=== PATIENT | female | born 1990 | race American Indian/Alaskan Native ===

== ENCOUNTER 2017-04-04 22:23 | Emergency (ER) | payer OTHER ==
[~2017-04-04] VITALS: Ht 165.1 cm; Wt 88.5 kg
[~2017-04-04 22:23] MED LIST: CYCLOBENZAPRINE10 MG PO; EXPECTA PRENAT1 EACH MT
[2017-04-04] MEDS ORDERED: QUASENSE1 EACH PO (22:39)
== END 2017-04-05 00:33 | disposition home or self-care (01) ==
LOC: ED 22:23
DX: S16.1XXA Strain of muscle, fascia and tendon at neck level, initial encounter (principal); Z79.899 Other long term (current) drug therapy; V49.9XXA Car occupant (driver) (passenger) injured in unspecified traffic accident, initial encounter
CPT/HCPCS: 72125; 99284

== ENCOUNTER 2017-09-27 09:25 | Inpatient (IN) | payer OTHER ==
[~2017-09-27] VITALS: Ht 167.6 cm; Wt 95.2 kg
--- OUTSIDE RECORDS SUMMARY | ~2017-09-27 | XMS | Clinical Summary ---
Demographics + + + | Address | [address] | | | [place] [address] | + + + | Home Phone | | + + + | Preferred Language | Unknown | + + + | Marital Status | Single | + + + | Buddhist Affiliation | Unknown | + + + | Race | Unknown | + + + | Ethnic Group | Unknown | + + + Author + + + | Author | [facility] [employer] | + + + | Organization | [facility] [employer] | + + + | Address | Unknown | + + + | Phone | Unavailable | + + + Support + + + + + | Name | Relationship | Address | Phone | + + + + + | Daisy Dacosta | ECON | [address] | | | | | [place] | | | | | [address] | | + + + + + Care Team Providers + +------+ + | Care Atmospheric Technician Name | Role | Phone | + +------+ + PP | Unavailable | + +------+ + Allergies Not on File Current Medications Not on file Active Problems Not on file Social History + +-------+ +--------+------+ | Tobacco Use | Types | Packs/Day | Years | Date | | | | | Used | | + +-------+ +--------+------+ | Never Assessed | | | | | + +-------+ +--------+------+ + + + | Sex Assigned at | Date Recorded | | | | + + + | Not on file | | + + + Plan of Treatment Not on file Results Not on filefrom Last 3 Months"
--- OUTSIDE RECORDS SUMMARY | ~2017-09-27 | XMS | Clinical Summary ---
Demographics + + + | Address | [address] | | | [place] [address] | + + + | Home Phone | | + + + | Preferred Language | Unknown | + + + | Marital Status | Single | + + + | Methodist Affiliation | Unknown | + + + | Race | Unknown | + + + | Ethnic Group | Unknown | + + + Author + + + | Author | [facility] [employer] [facility] | + + + | Organization | [facility] [employer] [facility] | + + + | Address | Unknown | + + + | Phone | Unavailable | + + + Support + + + + + | Name | Relationship | Address | Phone | + + + + + | Daisy Dacosta | ECON | [address] | | | | | [place] | | | | | [address] | | + + + + + Care Team Providers + +------+ + | Care Automatic Mold Sander Name | Role | Phone | + [...]
--- OUTSIDE RECORDS SUMMARY | ~2017-09-27 | XMS | Clinical Summary ---
Demographics + + + | Address | [address] | | | [place] [address] | + + + | Home Phone | | + + + | Preferred Language | Unknown | + + + | Marital Status | Single | + + + | Hinduism Affiliation | Unknown | + + + | Race | Unknown | + + + | Ethnic Group | Unknown | + + + Author + + + | Author | [facility] [facility] | + + + | Organization | [facility] [employer] | + + + | Address | Unknown | + + + | Phone | Unavailable | + + + Support + + + + + | Name | Relationship | Address | Phone | + + + + + | Daisy Dacosta | ECON | [address] | | | | | [place] | | | | | [phone] | | + + + + + Care Team Providers + +------+ + | Care Dinkey Operator Name | Role | Phone | + [...]
[~2017-09-27 09:25] MED LIST changes: +QUASENSE1 EACH PO
--- NOTE | 2017-09-27 16:07 | NUR ---
09/27/17 1607 Chiara Wise 1547- PT ARRIVES TO PACU ON 10L VIA MASK. PT IS RESPONSIVE TO VOICE. REPORTS NO DIZZINESS, PAIN, OR NAUSEA AT THIS TIME. DRESSING TO RIGHT BREAST IS C/D/I. 1551- PT'S BP 72/54 WITH A MAP OF 58. PT LAID FLAT, LR FLUIDS WIDE OPEN. PT CONTINUES TO REPORT NO DIZZINESS. 1557- OXYGEN TITRATED TO 3L VIA NC. OXYGEN SAT MID TO HIGH 90'S ON 3L. 1559- OXYGEN TURNED TO 4L VIA NC FOR OXYGEN SAT 88% ON 3L. INSTRUCTED PT TO TAKE DEEP BREATHS AND COUGH. PT WAS ABLE TO PERFORM THIS. OXYGEN SAT MID TO HIGH 90'S AFTER THESE INTERVENTIONS.
--- NOTE | 2017-09-27 17:00 | NUR ---
DR BARRIGA NOTIFIED OF SBP 80, RECEIVED ORDER FOR BOLUS AND RIDLEY CATHETER.
--- NOTE | 2017-09-27 20:00 | NUR ---
IS AWAKE ALERT. RATES PAIN 6/10. CURRENTLY LOPRESSOR INCREASED TO 15MCG/MIN. WILL MEDICATE FOR PAIN BP IMPROVES. URINE OUT PUT IMPROVING. FAMILY IN ROOM.
--- NOTE | 2017-09-27 21:15 | NUR ---
CENTRAL LINE INSERTED PER DR BARRIGA. PT CHRISTIAN WELL, DID BECOME A LITTLE TEARFUL. REQUESTING SOMETHING FOR PAIN. ORDER FOR TORRADOL RECIEVED.
--- NOTE | 2017-09-27 23:45 | NUR ---
PT IS TIRED AND READY FOR SLEEP. DRSG TO R BREAST CHANGED DRSG IS SATURATED WITH SEROUS BROWN TINGED FLUID. DRAW SHEET CHANGED. PT DID HAVE PAIN WITH MOVMENT BUT RATED PAIN4/10 AFTERWARD. IV TYLENOL GIVEN PER SCHEDULE. PT FELL ASLEEP WITH IN 10 MIN OF DRSG CHANGE.SISTER IN ROOM WITH PT.
--- NOTE | 2017-09-28 02:16 | NUR ---
PT SLEEPING. OCC SATS DEC TO 70'S BRIEFLY THEN BACK TO UPPER 90'S. IS FLAT ON BACK. PROB SLEEP APNEA.
--- NOTE | 2017-09-28 04:21 | NUR ---
AWAKENED FOR ASSESSMENT. STATES PAIN IS "NOT MUCH". HAS BEEN ABLE TO SLEEP.DRSG INTACT. GIVEN WATER FOR DRY MOUTH.
--- NOTE | 2017-09-28 06:37 | NUR ---
TEMP GRADUALLY INC TO 98.3 AND HR HAS INC FROM 112 TO 120. PT RATES R CHEST/BREAT PAIN 06/24. IV TYLENOL GIVEN PER SCHEDULE BUT ALSO GIVEN 30MG TORRADOL IV. REPOSITIONED UP IN BED.
--- NOTE | 2017-09-28 06:43 | NUR ---
LEVOPHED TITRATED TO 10MCG/KG/MIN
--- NOTE | 2017-09-28 08:08 | EKG ---
[facility] [address] [facility] [place] [address] Signed Sinus tachycardia Minimal voltage criteria for LVH, may be normal variant Borderline ECG No previous ECGs available Confirmed by LAURA DAVIS MD ([id number]) on 09/28/2017 8:07:29 AM Electronically Signed By: LAURA DAVIS MD 09/28/17 0808 PATIENT NAME: AUSTIN BAILEY FABIAN Electrocardiogram DATE OF : [birth year] PHYSICIAN: LAURA DAVIS MD REPORT #: [id number] REPORT IS CONFIDENTIAL AND NOT TO BE RELEASED WITHOUT AUTHORIZATION
--- NOTE | 2017-09-28 09:04 | NUR ---
PT ON NOREPINEPHRINE AT 10 MCG/KG/MIN AT THIS TIME. GTT HAS NOT BEEN TITRATED
--- NOTE | 2017-09-28 10:00 | NUR ---
RIGHT BREAST DRESSING CHANGED AT THIS TIME, PT TOLERATED WELL. WOUND CLEANED WITH TOPICAL WOUND CLEANSING SPRAY. DRAINING YELLOW/SEROUS FLUID. PRESTON DRAINS INTACT, BREAST REDNESS DECREASED FROM OUTLINE. SWELLING INTO RIGHT AXILLA REGION, NONTENDER TO TOUCH. PT REPORTED NO PAIN WITH DRESSING CHANGE EXCEPT FOR TAPE REMOVAL. MUTLIPLE VERY SMALL FLUID FILLED BLISTER-LIKE LESIONS ON VARIOUS AREAS OF BREAST, NONTENDER, SOME DRAINING.
--- NOTE | 2017-09-28 10:30 | NUR ---
NOREPINEPHRINE DECREASED TO 8 MCG/KG/MIN AT THIS TIME
--- NOTE | 2017-09-28 10:45 | NUR ---
PT UP TO CHAIR, AMBULATED WELL. ONE PERSON ASSIST. STEADY GAIT
--- NOTE | 2017-09-28 15:59 | NUR ---
PT REPORTS INCREASED CHILLED FEELING, CURRENT RIDLEY TEMP 100.2 F, IV TORADOL GIVEN IV FOR PAIN AND INCREASED TEMPERATURE
--- NOTE | 2017-09-28 17:45 | NUR ---
NOREPI INCREASED TO 6 MCG/MIN. PT BREAST DRESSING CHANGED AT THIS TIME, GAUZE SATURATED. NO DRAINAGE ON SUPPORT GARMENT. PT TOLERATED DRESSING CHANGE WELL. PT WITH INCREASED SWELLING IN AXILLA REGION AND PT REPORTS INCREASED TENDERNESS.
--- NOTE | 2017-09-28 19:56 | NUR ---
STATES IS STILL WORKING AT DINNER. DENIES ANY PAIN. LEVOPHED DECREASED [id number] TO 7MCG. DRSG DRY AND INTACT.
--- NOTE | 2017-09-28 21:52 | NUR ---
WATCHING TV WITH SISTER. NO C/O.
--- NOTE | 2017-09-28 22:44 | NUR ---
ASKING FOR MORE SPRITE, GIVEN. NO C/O PAIN. DRSG TO R BREAST REMAINDS DRY AND INTACT. CATH CARE DONE. LIGHTS DOWN PER PT REQUEST.
--- NOTE | 2017-09-28 23:18 | NUR ---
PT GETTING READY FOR SLEEP. DRSG CHANGE DONE. HAS MOD AMT SERO HALL DRAINAGE, DID NOT SATURATE DRSG. OVERALL BREAST AREA IS REDDENED BUT NO REDNESS NOTED AT INCISION SITE. HAVE NOTED RR 30'S PT STAES BREATHING IS EASIER THAN EARLIER TODAY. LEVOPHED NOW AT 6MG MIN.
--- NOTE | 2017-09-29 01:00 | NUR ---
PT SLEEPING.LEVOPHED DEC TO 5MCG.
--- NOTE | 2017-09-29 02:10 | NUR ---
YCONT TO SLEEP. LEVOPHED TO 4MCG.
--- NOTE | 2017-09-29 03:09 | NUR ---
SLEEPING. WILL CONT LEVOPHED AR 4MCG/MIN
--- NOTE | 2017-09-29 04:06 | NUR ---
CONT TO SLEEP WELL.
--- NOTE | 2017-09-29 05:30 | NUR ---
IN TO AWAKEN PT AT 0500 FOR ASSESSMENT AND VS. RR IN 30'S WHILE PT ASLEEP AND HAVE NOTED TEMP INC TO 100.3. PT ASKING FOR COVER FOR L SHOULDER IT IS SL PAINFUL. COVERED. TORRADOL 30MG IV GIVEN AND LABS DRAWN. HAS UPPER AIRWAY WHEEZES AND FEW SCATTERED EXP WHEEZES THROUGH OUT. DR BARRIGA CALLED AND ORDER FOR NEB TX GIVEN. RT CALLED.
--- NOTE | 2017-09-29 06:00 | NUR ---
PT FEELING BETTER AFTER NEB TX. BREATH TONES ARE MUCH DIMMER ON LEFT.
--- NOTE | 2017-09-29 07:40 | NUR ---
AT 0610 ALERTED BY XRAY TO CALL MD FOR REVEIW OF XRAY SHE HAD CONCERNS. DR DAVIS AND NITHYA CALLED. WAS INFORMED PT HAD PNEUMOTHORAX. PT NOT HAVING ANY INCREASED RESP DISTRESS. AT 0650 DR BARRIGA HERE AND CHEST TUBE PLACED. PT WAS GIVEN 2MG VERSED IV PRIOR TO PLACEMENT AND GIVEN 4MG MORPHINE IV AFTERWARD. PT STATES SHE IS BREATHING BETTER NOW. POST CHEST XRAY DONE. DR BARRIGA REMOVED BREAST DRSG AND THEN WAS REPLACED PER YOLANDA MADRID. PT SOMEWAHT TEARFUL, REASURED. REPORT TO DAY SHIFT.
--- NOTE | 2017-09-29 07:45 | NUR ---
PT SHIFT REPORT RECEIVED FROM KINESIOLOGIST RN. PT IS RESTING IN BED. PT HAD CHEST TUBE PLACED THIS AM D/T PT DEVELOPING A PNEUMOTHORAX. PT IS AWAKE AND ALERT AND FOLLOWING COMMANDS. PT REMAINS ON LEVOPHED AT 4MCG/MIN WILL TITRATE PER ORDERS. RIDLEY IN PLACE AND DRAINING CLEAR YELLOW URINE.
--- NOTE | 2017-09-29 08:00 | NUR ---
PT WILL BE GOING BACK TO OR FOR DEBRIEDMENT OF RIGHT BREAST WITH DR. BARRIGA. PT NOTED TO HAVE LOW POTASSIUM THIS AM. WILL REPLACE BOTH MAG AND POTASSIUM PRIOR TO SURGERY. PT IS AGREEABLE TO THIS PLAN. WILL REDRAW POTTASSIUM WHEN REPLACEMENT IS FINISHED. WILL CONTINUE TO CLOSELY MONITOR.
--- NOTE | 2017-09-29 09:30 | NUR ---
TITRATED PT LEVOPHED TO 2MCG/MIN PER ORDERS. WILL CLOSELY MONITOR.
--- NOTE | 2017-09-29 09:45 | NUR ---
929- CALLED PAHARMACH IN REGRDS TO POTASSIUM REPLACEMENT. PER PHARMACY MAY INCREASE POTTASSIUM RATE TO EQUAL 20MEQ PER HOUR THROUGH CENTRAL LINE ACCESS. MD BARRIGA IN WITH PATIENT. PER SURGERY WILL BE AT 1130 THIS AM. 63- UPDATED MD FERNANDEZ REGKEITHING PLAN FOR SURGERY. PER MD WILL DRAW POTASSIUM LAB STAT AFTER REPLACEMENT.
--- NOTE | 2017-09-29 10:18 | NUR ---
INCREASED PT LEVOPHED BACK TO 4MCG/MIN D/T PT BP NOT TOLERATING DECREASE.
--- NOTE | 2017-09-29 11:15 | NUR ---
OR NURSE LAMIN HERE TO TAKE PT TO SURGERY. PT CONSENT SIGNED. PT IS AGREEABLE TO TREATMENT OPERATION. FAMILY AT BEDSIDE AND WILL STAY HERE IN CCU AND WAIT FOR AN UPDATE. GAVE PRN MORPHINE FOR CHEST TUBE DISCOMFORT.
--- NOTE | 2017-09-29 13:35 | NUR ---
09/29/17 1335 Yvette Herron 1314-PATIENT ARRIVED TO ROOM 127 WITH FUGITIVE INVESTIGATOR AND RN AT BEDSIDE BAGGING PATIENT. RT AT BEDSIDE AND PATIENT PLACED ON VENTILATOR. RIGHT WOUND VAC DRESSING TO BREAST CDI. RIDLEY CATHETER IN PLACE. SEE RTS VENT SETTINGS 1322-NOREPI OFF 1324-PATIENT OPENING EYES SQUEEZING HANDS LIGHTLY EXTUBATED WITH RT AND FUGITIVE INVESTIGATOR AT BEDSIDE. PATIENT COUGHED AND PLACED ON 4L NC O2 SAT DECREASED TO 88% WITH 4L NC O2 SAT INCREASED TO 95% BP 140/[address] RR 19 1326 NOREPI GTT TURNED BACK ON 4MCG/MIN 1332-PATIENT SLEEPING RR EVEN. 4L NC O2 SAT 100% BP 111/46. CT HAS SLIGHTLY LEAKING BEDSIDE RNS TO REDRESS.
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
--- NOTE | 2017-09-29 14:30 | NUR ---
PT CHEST TUBE NOTED TO HAVE NO FLUCATION OR BUBBLING. PER MD X-RAY ORDERED TO CONFIRM PLACEMENT AND PNEUMO STATUS. PT HAS CLEAR BREATH SOUNDS THROUGHOUT THE LEFT SIDE. RIGHT LOWER BASE IS DIMINISHED. WILL CONTINUE TO CLOSELY MONITOR.
--- NOTE | 2017-09-29 16:00 | NUR ---
PT HAVING GENERALIZED DISCOMFORT AND PT TEMP SLIGHTLY INCREASED. GAVE PRN TORADOL. WILL RECHECK PT PAIN AND GIVE IV MORPHINE IF NO IMPROVEMENT. WILL CONTINUE TO CLOSELY MONITOR.
--- NOTE | 2017-09-29 16:30 | NUR ---
INCARESED LEVOPHED GTT UP TO 10MCG/MIN PER ORDERS
--- NOTE | 2017-09-29 17:30 | NUR ---
PT DEVI AREA CLEAN AND CATH CARE COMPLETED. NEW UNDERWEAR PLACED. PLACED CLEAN GOWN ON PATIENT. PT IS MUCH MORE ALERT THIS AFTERNOON. WILL CONTINUE TO CLOSELY MONITOR.
--- NOTE | 2017-09-29 18:00 | NUR ---
MD HENDERSONE IN TO SEE PATIENT AND SPEAK WITH PATIENT REGUARDING SITUATION. UPDATED MD ON CHEST TUBE DRAINAGE AND INCREASED LEVOPHED TO 10MCG/MIN PER ORDER, AND REGAURDING URINE OUTPUT. PER MD BARRIGA KEEP URINE OUTPUT >20MLS/HR. CALL IF LESS THAN 20MLS/HR. ADVANCE DIET TOLERATED.
--- NOTE | 2017-09-29 19:30 | NUR ---
BEDSIDE REPORT GIVEN BY IRASEMA MADRID. PT IS AWAKE WITH FAMILY IN THE ROOM, DENIES PAIN OR NEEDS AT THIS TIME. SITTING UP IN BED EATING DINNER.
--- NOTE | 2017-09-29 23:00 | NUR ---
GAVE PT A DOSE OF DILAUDID FOR PAIN, BPS DROPPED TO 80'S/50'S FOR ABOUT AN HOUR THEN WENT BACK UP.
--- NOTE | 2017-09-30 00:20 | NUR ---
PT AWAKENS EASILY, GRIMACING WITH MOVEMENT AND STATES SHE IS HAVING "A LITTLE" PAIN. 30MG IV TORADOL GIVEN. BPS HAVE COME UP, LEVOPHED DRIP CONT AT 10MCG/MIN AND HR 105 SINUS, RESP CONT TO BE SOMEWHAT SHALLOW, ENCOURAGED DEEPER BREATHING, SPO2 93-95% RR 18. PT REMAINS AFEBRILE. DRESSING TO RIGHT BREAST AREA INTACT, CHEST TUBE REMAINS IN PLACE NO FLUCTUATION NOTED, NO DRAINAGE ON DRESSING. URINE OUTPUT CONT APPROX 60ML/HR.
--- NOTE | 2017-09-30 02:00 | NUR ---
PT HAS BEEN SLEEPING WELL SINCE TORADOL GIVEN. BPS HAVE BEEN INCREASING, URINE OUTPUT STILL SUFFICIENT. RESP EVEN AND UNLABORED RR 18.
--- NOTE | 2017-09-30 04:46 | NUR ---
IN TO DO ASSESSMENT, PT WAKES DENIES NEEDS THEN BACK TO SLEEP. NO DRAINAGE NOTED FROM CHEST TUBE, DRESSING INTACT, BPS OVERALL INCREASING AND HR 100, RR 18 AND SPO2 95%.
--- NOTE | 2017-09-30 07:20 | NUR ---
PT HAD A RESTFUL NIGHT. LEVOPHED WAS ABLE TO BE TITRATED DOWN TO 6MCG/MIN, HR 100-110 SINUS, RESP EVEN AND UNLABORED WITH CLEAR LUNGS RR 22 AND PT HAS REMAINED AFEBRILE, URINE OUTPUT OVER 100ML/HR FOR THIS SHIFT. CHEST TUBE IN PLACE WITH 90ML SEROUS DRAINAGE OUT, WOUND VAC IN PLACE OVER RIGHT BREAST AREA WITH SWELLING NOTED TO AXILLA, WELL INCREASED GENERALIZED EDEMA. PAIN WAS CONTROLED WITH ONE DOSE OF DILAUDID AND ONE DOSE OF TORADOL.
--- NOTE | 2017-09-30 07:50 | NUR ---
DRCREASED LEVOPHED DRIP TO 4MCG/MIN AT THIS TIME.
--- NOTE | 2017-09-30 08:50 | NUR ---
DR BARRIGA INTO SEE PT AT THIS TIME, ALL QUESTIONS ANSWERED AT THIS TIME. PT AND SHANELITER APPEARED TO UNDERSTAND THE DISCUSSION AT THIS TIME.
--- NOTE | 2017-09-30 08:52 | NUR ---
DECREASED LEVOPHED DRIP TO 2MCG/MIN AT THIS TIME. PER DR BARRIGA SBP OF 100 IS THE GOAL TODAY.
--- NOTE | 2017-09-30 10:00 | NUR ---
LEVOPHED DRIPP TURNED OFF AT THIS TIME. SBP REMAINS WITHIN THE PERMANORS SET BY DR BARRIGA.
--- NOTE | 2017-09-30 10:12 | NUR ---
PHONE CALL TO TRENCH DIGGER TE MICHAUD RN. EXPLAINED ORDER THAT DR BARRIGA WROTE TO ASSISTANCE NEEDED FOR CARE WITH WOUND VAC.
--- NOTE | 2017-09-30 10:13 | NUR ---
CENTRAL LINE HEP LOCKED AT THIS TIME. ALL PORTS PROVIDE BLOOD RETURN.
--- NOTE | 2017-09-30 10:30 | NUR ---
PT ATE SOME OF HER BKF, BUT NOT ALL. PT WANTS TO KEEP PICKING AT IT.
--- NOTE | 2017-09-30 11:42 | NUR ---
TALKED WITH PATHOLOGY REGARDING THE PT BREAST THAT WAS REMOVED. PT AND FAMILY ARE WANTING HER BREAST TO HAVE FOR SPITURAL NEEDS. PATHOLOGY WANTS IT IN WRITING SO THAT IT CAN BE BROUGHT DOWN FROM [place] [facility] TO GIVE TO PT. THIS WAS TIYPED UP AND HAD PT SIGN IT AND WILL BE GIVEN TO PATHOLGY.
--- NOTE | 2017-09-30 11:57 | NUR ---
PT APPEARS TO BE SLEEPING AT THIS TIME, SPB WITH IN RANGE OF DR FLORES ORDERS. SEE VS, SPO2 97% ON RA AT THIS TIME, AND SISTER REMAINS AT THE BEDSIDE.
--- NOTE | 2017-09-30 12:47 | NUR ---
PT FAMILY AND KIDS AR IN THE ROOM AT THIS TIME, PT IS FINISHING BKF AT THIS TIME. ALL QUESTIONS ANSWERED FOR FAMILY
--- NOTE | 2017-09-30 15:41 | NUR ---
PT HAD BEDBATH, LINE CHANGE AND STAND AT THE BEDSIDE. THEN PT SAT UP IN BED TO EAT A HAMBURGER. PT DID WELL WITH THIS PROCESS. SISTER REMAINS AT THE BEDSIDE.
--- NOTE | 2017-09-30 17:58 | NUR ---
FAMILY AND FREINDS PRESENT AT THIS TIME. THEY ARE HAVING A SPIURAL CERMONY FOR PT AT THIS TIME.
--- NOTE | 2017-09-30 18:29 | NUR ---
DR BARRIGA INTO TALK WITH PT AND FAMILY. EXPLAINED THE PATHOLOGY OF THE SCORSE OF INFECTION.
--- NOTE | 2017-09-30 18:51 | NUR ---
PT GIVEN 650 MG TYLENOL PO AT THIS TIME FOR FEVER AND PAIN, AT THIS TIME. PT REPOSITIONED FOR DINNER AT THIS TIME. THEN SHE IS FEEDING HERSELF AT THIS TIME.
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
--- NOTE | 2017-09-30 18:57 | OR ---
[facility] [address] [place], [place] [address] Signed DATE OF OPERATION: 09/29/2017 SURGEON: Keyshawn Barriga MD PREOPERATIVE DIAGNOSES: 1. Persistent sepsis with recent incision, drainage and debridement of right breast abscess and cellulitis (severe). 2. Morbid obesity. POSTOPERATIVE DIAGNOSIS: Necrotizing soft tissue infection of right breast. PROCEDURES: 1. Exam under anesthesia and initial debridement. 2. Progression of right total mastectomy. 3. Application of wound VAC device. ANESTHESIA: General endotracheal, Shu Tinajero CRNA. INDICATION: This morbidly obese 27-year-old woman presented to the emergency room on 09/27/2017, where she was noted to have tachycardia, elevated white count, elevated lactic acid level and a markedly edematous and inflamed right breast with some epidermolysis of the skin. Sepsis protocol was initiated and cefepime administered and surgical consultation undertaken to Dr. Mcdowell in the emergency room. She had aggressive fluid resuscitation, but remained relatively hypotensive and tachycardic. OPERATION: She underwent incision and drainage of the right breast where purulent material was noted, but not in copious amounts as had been anticipated. She had a mysterious incidents of right breast trauma approximately six days prior to her presentation. Multiple Ananya drains were placed in the areas within the breast that have purulent collections. She required pressor agent postoperatively including norepinephrine. Her lactic acid levels decreased and this morning were 1.9. Her creatinine was initially elevated to 1.33 and that is now normal as well. She has been alert and oriented without signs of delirium. A central line was placed and she is still required variable degrees of low-level norepinephrine for sustaining blood pressure in adequate levels and remains Electronically Signed By: KEYSHAWN BARRIGA MD 09/30/17 1857 PATIENT NAME: AUSTIN BAILEY OPERATIVE REPORT DATE OF : [birth year] REPORT #: [id number] PHYSICIAN: KEYSHAWN BARRIGA MD PCP: NATHAN MITCHELL MD REPORT IS CONFIDENTIAL AND NOT TO BE RELEASED WITHOUT AUTHORIZATION [facility] [address] [place], [place] [address] Signed tachycardic between 120 and 130 beats per minute. Examination of her breast shows the area of epidermolysis and desquamation to have progressed with what appears to be dermis. Concern is maintained for necrotizing soft tissue infection. She has been on vancomycin and meropenem since her operation. Though she is alert and oriented, and so forth given her lack of defervescence from her initial operative intervention I have recommend exam under anesthesia and debridement as necessary. The patient and her sister who accompanies her, understand the risks of bleeding, infection, need for extensive debridement and even possibly mastectomy, though that is hopefully to be avoided. They understand this and wished to proceed particularly given the possibility of life-threatening infection. A special note, Gram stains of the initial fluid explanted from the drainage of abscess showed gram-positive cocci, not otherwise characterized at this point. FINDINGS: In debridement of the skin a purulent type material was noted. This extended beneath the nipple to a great degree and there appeared to be purulent material throughout the trabeculations of the right breast and some tissue that was clearly nonviable. Indeed, the skin itself was completely nonviable in the lateral aspect. This necessitated a total mastectomy, which was accomplished back to completely viable soft tissue superiorly, inferiorly, medially, and deeply. Excision of the axillary tail of Jason was undertaken and dissection into the axilla to some degree was also accomplished, but that tissue appeared completely viable. A wound VAC device was placed. DESCRIPTION OF PROCEDURE: The patient was brought to the operating room, given a general endotracheal anesthetic. A glide scope was used to her obesity. She had been on antibiotics, vancomycin and meropenem. The Ananya drains that had been placed and the previous operation were removed and the rest photographed and then prepared with a Betadine solution and draped sterilely. Incision into the eschar was undertaken in the medial inferior aspect and debriding the eschar. A layer of purulent material was noted. Gram-stain and cultures were obtained. There appeared to be throughout the breast upon debridement of the necrotic skin, purulence extending throughout the trabeculations of the breast and without vigorous bleeding and findings highly suggestive of a necrotizing soft tissue infection of the Electronically Signed By: KEYSHAWN BARRIGA MD 09/30/17 2965 PATIENT NAME: AUSTIN BAILEY OPERATIVE REPORT DATE OF : [birth year] REPORT #: [id number] PHYSICIAN: KEYSHAWN BARRIGA MD PCP: NATHAN MITCHELL MD REPORT IS CONFIDENTIAL AND NOT TO BE RELEASED WITHOUT AUTHORIZATION [facility] [address] [place] [id number] Signed breast. The wall tensions were maintained to avoid mastectomy became clear that the extent of the infection would clearly require that. Minimal flaps were developed, only debriding tissue back to viable tissue superiorly and inferiorly and ultimately medially and excising the breast from a medial to lateral direction. In the area of the lower lateral breast tissue, additional similar such a tissue was noted. Ultimately, complete mastectomy was performed, excising tissue from the pectoralis and the pectoralis minor. Dissection was carried into the axillary tail of Gomez and into the axilla to a degree where completely viable tissue was noted in the axilla. The breast was passed for pathology and photographs taken. Irrigation was undertaken and no sites that were bleeding during the course of the procedure and had been secured with hemostats were then secured with 0 Vicryl ties. Irrigation was then undertaken and the remaining chest wall and subcutaneous tissue was completely viable with good punctate bleeding. The wound VAC device was applied to suction. Additional material of the sponge was packed into the axilla and good apposition of the skin to the sponge was noted. The patient is anticipated to be extubated in the operating room and transferred back to the intensive care unit for further management. As regards hemodynamics, she presented to the emergency room with pressor agents in play including norepinephrine drip, but appears to be less tachycardic at conclusion of procedure at 1:12 to 1:14 maintaining good blood pressure and lessened doses of norepinephrine. Blood loss was about 150 mL. Sponge, needle, and instrument counts reported as correct x3. MD TAMARA Gilbert/SUNDARL /[id number] Electronically Signed By: KEYSHAWN BARRIGA MD 09/30/17 1857 PATIENT NAME: AUSTIN BAILEY OPERATIVE REPORT DATE OF : [birth year] REPORT #: [id number] PHYSICIAN: KEYSHAWN BARRIGA MD PCP: NATHAN MITCHELL MD REPORT IS CONFIDENTIAL AND NOT TO BE RELEASED WITHOUT AUTHORIZATION [address] [address] Signed cc: MD Nathan Glez MD Copies: LAURA DAVIS MD, REX MD ~ Electronically Signed By: KEYSHAWN BARRIGA MD 09/30/17 1857 PATIENT NAME: AUSTIN BAILEY OPERATIVE REPORT DATE OF : [birth year] REPORT #: [id number] PHYSICIAN: KEYSHAWN BARRIGA MD PCP: NATHAN MITCHELL MD REPORT IS CONFIDENTIAL AND NOT TO BE RELEASED WITHOUT AUTHORIZATION
--- NOTE | 2017-09-30 18:57 | OR ---
[facility] [address] [place], [place] [address] Signed DATE OF OPERATION: 09/29/2017 SURGEON: Keyshawn Barriga MD PREOPERATIVE DIAGNOSES: 1. Left pneumothorax. 2. Severe infection of the right breast. POSTOPERATIVE DIAGNOSES: 1. Left pneumothorax. 2. Severe infection of the right breast. PROCEDURE: Left 20-Maldivian chest tube placement. ANESTHESIA: Intravenous sedation; versed 2 mg. INDICATIONS: This morbidly obese 27-year-old [place] woman who was admitted for a severe soft tissue infection of the right breast including mastitis and intraparenchymal abscess and desquamation of the skin. She underwent incision and debridement, but had maintenance of a very septic picture. She required Levophed, pressure support after 8 L of fluid resuscitation. A subclavian central line was placed by me yesterday and postprocedure chest x-ray showed no sign of pneumothorax or other problems. This morning, she began having some tachypnea and a chest x-ray was performed after bronchodilator treatment, which showed a pneumothorax and considered moderate in size. The chest tube was indicated. I discussed with the patient and her sister the risks of bleeding, infection, so forth related to chest tube placement and they agreed to proceed. FINDINGS: Some inflammatory fluid of the pleural space was withdrawn and air of course. There was no evidence of ongoing air leak. A postprocedure chest x-ray is pending. DESCRIPTION OF PROCEDURE: The patient in the bed with head elevated and left arm elevated. Her entire left breast and chest wall area was prepared with Betadine solution. The patient was quite morbidly obese, and the area of access was considered for lateral versus anterior. Ultimately, Electronically Signed By: KEYSHAWN BARRIGA MD 09/30/17 1487 PATIENT NAME: AUSTIN BAILEY OPERATIVE REPORT DATE OF : [birth year] REPORT #: [id number] PHYSICIAN: KEYSHAWN BARRIGA MD PCP: NATHAN MITCHELL MD REPORT IS CONFIDENTIAL AND NOT TO BE RELEASED WITHOUT AUTHORIZATION [facility] [address] [place], [place] [address] Signed it was deemed advisable to place the chest tube laterally after all. With a sterile-gloved preschool assistant director, the left breast was retracted medially and 1% lidocaine was injected in the lateral chest space and a transverse incision made. Using digital examination, the subcutaneous tissue was as was the use of a Noemi clamp. Ultimately, the chest wall was encountered and additional local anesthetic given. She was given Versed 2 mg prior to the procedure. With probing, the 6th or 7th rib was identified and using the Noemi clamp, entry to the pleural space was undertaken directly over the rib. A fair amount of air was noted to montelongo from the pleural space upon this. Digital interrogation of the pleural space was undertaken showing no sign of adhesions of the lung. A 20-Maldivian chest tube was insinuated into the pleural space ultimately using the Noemi clamp itself to guided given her significant chest wall obesity. Good respiratory variation was noted. The tube was applied to device and secured to the skin with a 2-0 nylon suture and carefully taped. She tolerated the procedure well, and a chest x-ray is pending. Keyshawn Barriga MD JM/MODL /[id number] Copies: ~ Electronically Signed By: KEYSHAWN BARRIGA MD 09/30/17 1857 PATIENT NAME: LEOAUSTIN ROSE OPERATIVE REPORT DATE OF : [birth year] REPORT #: [id number] PHYSICIAN: KEYSHAWN BARRIGA MD PCP: NATHAN MITCHELL MD REPORT IS CONFIDENTIAL AND NOT TO BE RELEASED WITHOUT AUTHORIZATION
--- NOTE | 2017-09-30 18:57 | OR ---
[facility] [address] [place], [place] [address] Signed DATE OF OPERATION: 09/27/2017 SURGEON: Keyshawn Barriga MD TIME: 9:10 p.m. PREOPERATIVE DIAGNOSIS: Persistent signs of sepsis and hypotension, need for central venous access for pressor agent. POSTOPERATIVE DIAGNOSIS: Persistent signs of sepsis and hypotension, need for central venous access for pressor agent. PROCEDURE PERFORMED: Left subclavian Arrow blue tip triple-lumen catheter placement. ANESTHESIA: 1% lidocaine. INDICATIONS: This 27-year-old obese [place] woman underwent right breast complex breast abscess debridement and drainage. She was noted to have systemic sepsis preoperatively including tachycardia, some tachypnea, hypotension, lactic acid level of 2.6, and white count of 22,000. She underwent operation without problem, but has remained hypotensive and tachycardic despite nearly 7 L of crystalloid solution and IV antibiotic administration including vancomycin and meropenem. The norepinephrine drip has been initiated to maintain her mean arterial pressure. A central venous catheter is needed on that basis. The risks of bleeding, infection, pneumothorax and so forth were reviewed with the patient, she understands and wished to proceed. FINDINGS: Dark nonpulsatile blood was noted from the left subclavian vein. The catheter was placed without problem and is highly functional. A postprocedure chest x-ray showed good position of the tip of the catheter in the superior vena cava at the atrial caval junction. No evidence of complication including no evidence of pneumothorax. DESCRIPTION OF PROCEDURE: In the supine position with mild Trendelenburg position, the left infraclavicular space Electronically Signed By: KEYSHAWN BARRIGA MD 09/30/17 0407 PATIENT NAME: AUSTIN BAILEY OPERATIVE REPORT DATE OF : [birth year] REPORT #: [id number] PHYSICIAN: KEYSHAWN BARRIGA MD PCP: NATHAN MITCHELL MD REPORT IS CONFIDENTIAL AND NOT TO BE RELEASED WITHOUT AUTHORIZATION [facility] [address] [place], [place] [address] Signed was prepared with a chlorhexidine solution and draped sterilely. A 1% lidocaine was injected. Sterile glove gown and so forth were used per hospital protocol. The left infraclavicular space was injected with 1% lidocaine. Using the Seldinger technique, the left subclavian vein was ultimately encountered showing dark nonpulsatile blood. A flexible J-wire was passed down the needle and the needle was removed. The site was incised with an #11 blade and dilated with enclosed blue dilator and a previously inspected Arrow blue tip triple-lumen catheter was passed over the wire. The wire was removed from the distal port. Aspiration on the distal port showed dark nonpulsatile blood. The catheter was flushed with saline after re-applying the cleave device. The catheter was withdrawn a small amount and the enclosed collar was used to secure the catheter to the skin. Anti-infective disk was applied as was a SorbaView dressing. The patient tolerated the procedure well. Blood loss was less than 10 mL. A postprocedure chest x-ray confirmed good position of the catheter without sign of apparent complication. MD TAMARA Gilbert/CARMEN /[id number] cc: Dr. Armida Mcdowell Copies: ~ Electronically Signed By: KEYSHAWN BARRIGA MD 09/30/17 1857 PATIENT NAME: LEOAUSTIN ROSE OPERATIVE REPORT DATE OF : [birth year] REPORT #: [id number] PHYSICIAN: KEYSHAWN BARRIGA MD PCP: NATHAN MITCHELL MD REPORT IS CONFIDENTIAL AND NOT TO BE RELEASED WITHOUT AUTHORIZATION
--- NOTE | 2017-09-30 19:23 | NUR ---
PT FINISHED DINNER AND MEDICATED WITH TORDAL 30MG AT THIS TIME. CONTIOUES TO VISIT WITH FAMILY AND FREINDS AT THIS TIME.
--- NOTE | 2017-09-30 20:00 | NUR ---
RECEIVED REPORT AT 1900, PT WAS IN BED AWAKE WIHT MUCH FAMILY AT BEDSIDE. PT USED BEDSIDE COMMODE AND HAD A LOOSE BM. CHEST TUBE HAS NO OUTPUT SINCE THE LAST TIME IT WAS CHECKED, WOUNDVAC HAS SOME OUTPUT PRESENT. RIDLEY URINE OUTPUT SEEMS ADEQUATE SO FAR. ALL LOBES ARE DIMINISHED PT DENIES SOB. NO LEAK NOTED AROUND CHEST TUBE INSERTION SITE.
--- NOTE | 2017-09-30 22:00 | NUR ---
ART LINE HAS BEEN FLUSHED AND MEASURED AND ADJUSTED. PT AT THIS TIME IS SLEEPING. BLOOD PRESSURES ARE SOFT IN THE 90'S. WILL CONTINUE TO MONIOR. PT IS AFREBRILE AT THIS TIME WELL.
--- NOTE | 2017-10-01 | NUR ---
PT WAS WOKEN UP FOR ASSESSMENT. ALL LOBES ARE CLEAR BUT DIMINISHED. PT HAS SOME GENERALIZED EDEMA PRESENT. CHEST TUBE HAS NO LEAK PRESENT. INCISION SITE ON RIGHT CHEST AREA IS C/D/I WITHOUT ANY LEAK PRESENT. URINE OUTPUT IS ADEQUATE. BLOOD PRESSURES ARE IN THE LOW 100'S AT THIS TIME. PT STILL STATED THAT HER PAIN IS MINIMAL 3/10.
--- NOTE | 2017-10-01 02:00 | NUR ---
PT IS SLEEPING AT THIS TIME. WILL CONTINUE TO MONITOR.
--- NOTE | 2017-10-01 03:01 | NUR ---
PT AT THIS TIME HAS A TEMP OF 99.0. F. WILL CONTINUE TO MONITOR AND GIVE TYLENOL PRN IF NEEDED. PT WAS IN A DEEP SLEEP ANT O2 LEVELS DROPPED TO 88% ON RA. PT AT THIS TIME IS ON 2L O2 OXY MASK WHILE SLEEPING. CHEST TUBE HAS A SMALL AMOUNT OF CLEAR FLUID IN TUBE. NO OTHE NEW OUTPUT NOTED SO FAR. WOUNDVAC HAS NO NEW OUTPUT SO FAR.
--- NOTE | 2017-10-01 03:17 | NUR ---
PRN TYLENOL PO WAS GIVEN DUE TO PAIN 06/24 AND AN INCREASE IN TEMP FROM 99.0 AT 0300 TP 99.2 AT 0315. PT IS RESTING AGAIN AT THIS TIME. PT IS ALSO ON RA AGAIN AT THIS TIME. WILL CONTINUE TO MONITOR.
--- NOTE | 2017-10-01 05:00 | NUR ---
0400 ASSESSMENT HAS HAD NO CHANGE PRESENT. PT STILL HAS A TEMP OF ABOUT 99.2-99.3. DRAINAGE FROM CHEST TUBE IS CLEAR AT THIS TIME. PT STILL HAS 5/10 PAIN, TORADOL TO BE GIVEN. PT IS RESTING AT THIS TIME.
--- NOTE | 2017-10-01 05:30 | NUR ---
PT OVERALL DID NOT HAVE SIGNIFICANT CHANGES THIS SHIFT. PAIN WAS NO ISSUE UNTIL 0300. PRN TYLENOL AND TORADOL HAD TO BE GIVEN. PT AT START OF SHIFT WAS AFEBRILE. AT 0300 TEMP WAS ABOUT 99.0-99.3. TEMP IS DROPING AT THIS TIME. PT HAS REMAINED ON RA MOST OF THE NIGHT. PT WAS PUT ON OXY MASK 2L O2 AROUND 0200 DUE TO THE PT SLEEPING VERY SOUNDLY. ALL LOBES HAVE BEEN CLEAR BUT DIMINISHED. PT IS A SHALLOW BREATHER BUT DENIES PAIN WITH DEEP BREATHS. CHEST TUBE OUTPUT WAS MINIMAL. AT START OF SHIFT OUTPUT WAS SEROSANG. AT THIS TIME HER CHEST TUBE OUTPUT IS CLEAR. WOUNDVAC ONLY HAD A VERY SMALL AMOUNT OF DRAINAGE AND INCISION ON RIGHT BREAST IS C/D/I. URINE OUTPUT HAS BEEN ADEQUATE ALL SHIFT. PT ALSO HAD A BM ON THE BEDSIDE COMMMODE. PT HAS BEEN MILDELY TACHY ALL SHIFT AND BLOOD PRESSURES WERE SOFT AT TIMES IN THE 90'S SYSTOLICALLY. WILL CONTINUE TO MONITOR.
--- NOTE | 2017-10-01 08:05 | NUR ---
PT APPEARS ASLEEP AT THIS TIME. WILL LET PT SLEEP TILL MD OR SHE WAKES UP.
--- NOTE | 2017-10-01 09:07 | NUR ---
DR BARRIGA INTO SEE PT AT THIS TIME, CHEST TUBE PULLED AT THIS TIME, ART LINE PULLED ALSO AT THIS TIME. LABS SAMPLES SEND PER ORDER. THEN CENTRAL LINE HEP LOCKED AT THIS TIME.
--- NOTE | 2017-10-01 09:13 | NUR ---
XRAY HERE TO OBTAIN SINGLE VIEW XRAY OF THE CHEST.
--- NOTE | 2017-10-01 10:50 | NUR ---
SISTER DANNY INTO SEE PT, BUT PT IS ASLEEP AT THIS TIME. PT IS WANTING TO TAKE A NAP TILL LUNCH, THEN GET WASHED UP AND UP TO THE CHAIR FOR HER MEAL.
--- NOTE | 2017-10-01 12:51 | NUR ---
PT CONTIOUES TO SLEEP A THIS TIME.
--- NOTE | 2017-10-01 15:29 | NUR ---
PT UP TO THE BS COMMODE AT THIS TIME, HAD BM AND THEM BACK TO BED. PT GIVEN WARM BLANKET AT THIS TIME.
--- NOTE | 2017-10-01 16:17 | NUR ---
PT AWAKENS FROM NAP WITH FLUSHED CHECKS, FEELING WARM. TYLENOL 650MG PO GIVEN AT THIS TIME. PT WAS SLEEPING WITH THREE WARM BLANKETS, TOP SHEET, AND THEN BLANKET. ROOM TEMP IS 73 AT THIS TIME.
--- NOTE | 2017-10-01 17:52 | NUR ---
PT BACK TO BED AT THIS TIME, PT GIVEN AN IS TO USE TO HELP BRING DOWN FEVER AND INCREASE LUNG EXPANATION. PT IS ABLE TO BRING IT UP TO 1200.
--- NOTE | 2017-10-01 18:19 | NUR ---
PT DOING WELL, TALKING WITH FAMILY AND FREINDS. PTS SISTER HAS DONE HE HAIR FOR HER TODAY, SHE HAS BEEN UP TO THE CHAIR AND IS USING THE BEDSIDE COMMODE. PT IS VERY GOD WITH NOT USING HER RIGHT ARM. PT IS DOING WELL WITH THE IS DURING COMMERICALS ON THE TV.
--- NOTE | 2017-10-01 19:13 | NUR ---
PT UP TO BEDSIDE COMMODE WITH ONE PERSON ASSIST. PT SISTER IS VERY ATTENTIVE AND HELPFUL.
--- NOTE | 2017-10-01 19:30 | NUR ---
REPORT RECEIVED FROM CONCEPCIÓN MADRID. PT AWAKE IN BED WATCHING TV, DENIES PAIN OR NEEDS.
--- NOTE | 2017-10-01 20:30 | NUR ---
ASSESSMENT DONE, SISTER IN ROOM [facility] PT, PT DENIES NEEDS
--- NOTE | 2017-10-01 20:50 | NUR ---
PT REQUESTS PAIN MED, PERCOCET GIVEN FO 05/25 APIN.
--- NOTE | 2017-10-02 00:05 | NUR ---
UP TO VOID THEN BACK TO BED, DENIES PAIN OR NEEDS, ASSESSMENT UNCHANGED FOM PREVIOUS.
--- NOTE | 2017-10-02 02:00 | NUR ---
PT CONT TO SLEEP RESP EVEN AND UNLABORED.
--- NOTE | 2017-10-02 04:22 | NUR ---
PT CONT TO SLEEP, HR 110
--- NOTE | 2017-10-02 07:15 | NUR ---
PT WAS ABLE TO REST LAST NIGHT, PAIN CONTROLLED WITH PERCOCET. HR 100-110, RESP EVEN UNLABORED SLIGHTLY SHALLOW, DEEP BREATHING AND IS ENCOURAGED. URINE OUTPUT WNL. STARTING TO INCREASE ACTIVITY AND GETTING SELF UP AND DOWN FROM BED TO BSC WITH LIMIATIONS TO RIGHT ARM MOVEMENT, WOUND VAC DRESSING IN PLACE. TEMPERATURE IS UP TO AROUND 100.0 F THIS MORNING, PERCOCET RECENTLY GIVEN.
--- NOTE | 2017-10-02 08:20 | NUR ---
PT IS CURRENTLY ASLEEP AND APPEARS TO BE COMFORTABEL AT THIS TIME. PT SISTER REMAINS AT THE BEDSIDE.
--- NOTE | 2017-10-02 09:47 | NUR ---
PT UP TO THE BS COMMODE THEN UP TO THE CHAIR, PT EATING BKF AT THIS TIME. DENIES THE NEED FOR PAIN MEDICATIONS AT THIS TIME.
--- NOTE | 2017-10-02 10:45 | NUR ---
PT CONTIOUES TO EAT BKF AT THIS TIME. REMAINS UP IN THE CHAIR AT THIS TIME. CONTIOUES TO DENIE PAIN OR THE NEED FOR PAIN MEDICATIONS.
--- NOTE | 2017-10-02 11:11 | NUR ---
DR BARRIGA INTO SEE PT AT THIS TIME. PT WILL BE TRANSFERED TO THE M/S UNIT TODAY.
--- NOTE | 2017-10-02 13:27 | NUR ---
REPORT CALLED TO ALEXANDER MADRID FROM THE M/S UNIT AT THIS TIME. ALL QUESTIONS ANSWERED, PT TO ROOM 113. PT TRASFERED VIA CHAIR TO ROOM 113 ALL PERSONAL BELONGINGS SENT WITH PT AT THIS TIME.
--- NOTE | 2017-10-02 13:57 | NUR ---
PT ARRIVED FROM CCU IN CHAIR. PT AWAKE AND ALERT, ANSWERS QUESTIONS APROPRIATELY. VSS. WOUND VAC IN PLACE. NON-PITTING EDEMA IN BILAT ARMS AND LEGS.
--- NOTE | 2017-10-02 18:05 | NUR ---
PT TRANSFERED TO FLOOR AFTER LUNCH. PT UP TO CHAIR MOST OF SHIFT IN CCU AND MS. WOUND VAC IN PLACE ON RIGHT BREAST. SMALL AMT OF DISCHARGE NOTED IN CANISTER. CANISTER CHANGED TODAY IN CCU PRIOR TO TX. PT TOLERATES WOUND VAC WELL. PT UP TO BSC, ONE PERSON ASSIST. PT NEEDS ASSISTANCE WITH PERICARE. PT PRACTICES BREATHING EXERCISES ON HER OWN. PT TOLERATES REG DIET WELL. PAIN WELL CONTROLED, PT HAS NOT ASKED FOR PAIN MEDS ON MS FLOOR. PT DENIES NAUSEA/VOMITING.
--- NOTE | 2017-10-02 19:20 | NUR ---
REPORT RECEIVED FROM OFFGOING [facility].
--- NOTE | 2017-10-02 20:25 | NUR ---
PT ASSESSMENT COMPLETE. PT RATES PAIN 5/10 TO R CHEST. PRN PERCOECT ADMINISTERED WITH SCHEDULED MEDICATIONS. PT REPORTS ONGOING SOB, DENIES CHANGE. PT DENIES NAUSEA AT THIS TIME. LUNG SOUNDS CLEAR. PT GIEN SUCTIONS FOR SPUTUM, PT REPORTS PRODUCTIVE COUGH PRESENT. WOUND VAC TO R CHEST. DRESSING C/D/I. SANGUINEOUS DRAINAGE PRESENT IN WOUND VAC CANISTER. PT DENIES OTHER NEEDS AT THIS TIME. CALL LIGHT WITHIN REACH.
--- NOTE | 2017-10-02 22:20 | NUR ---
PT LYING IN BED WITH EYES CLOSED, WAKES EASILY TO NAME CALLED. PT DENIES PAIN AT THIS TIME. INFORMED PT OF PLAN FOR NPO AT MIDNIGHT PER MD. PT STATES UNDERSTANDING. PT PROVIDED WITH SODE PER REQUEST. PT DENIES OTHER NEEDS AT THIS TIME. CALL LIGHT WITHIN REACH.
--- NOTE | 2017-10-02 23:03 | NUR ---
PT ASSISTED UP TO BSC. PT TOLERATED WELL. ASSISTED BACK TO BED. PT DENIES OTHER NEEDS AT THIS TIME. CALL LIGHT WITHIN REACH.
--- NOTE | 2017-10-03 00:15 | NUR ---
BEVERAGES AND FOOD REMOVED FROM PT'S BEDSIDE. PT STATES UNDERSTANDING REGARDING NPO STATUS, DENIES OTHER NEEDS AT THIS TIME. CALL LIGHT WITHIN REACH.
--- NOTE | 2017-10-03 02:28 | NUR ---
PT ASSESSMENT COMPLETE. PT REPORTS THAT PAIN IS WELL CONTROLLED AT THIS TIME. PT DENIES SOB OR NAUSEA.LUNG SOUNDS CLEAR/DIMINISHED. PT REPORTS THAT SHE "COUGHED SOME STUFF UP EARLIER", NO EVIDENCE OF SPUTUM IN SUCTION CANISTER. WILMER REMAINS AT BEDSIDE. GAUZE AND TAPE COVERING L CHEST, CHEST TUBE SITE C/D/I. WOUND VAC DRESSING TO R CHEST C/D/I, DRAINAGE IN CANISTER REMAINS SEROSANGUINEOUS. DRESSING TO L KNEE C/D/I. CENTRAL LINE REMAINS HEP LOCKED. PT UP TO USE BSC WITH 1 PA TOLERATED WELL AND ASSISTED BACK TO BED. PT DENIES NEEDS AT THIS TIME. CALL LIGHT IN PT'S LAP.
--- NOTE | 2017-10-03 05:36 | NUR ---
PT REPORTS PAIN INCREASED TO 4/10. PRN PERCOCET ADMINISTERED WITH SMALL SIP. PT UP TO USE BSC. WITH 1 PA AND ASSISTED BACK TO BED. PT TOLERATED WELL. DENIES OTHER NEEDS AT THIS TIME. CALL LIGHT IN PT'S LAP.
--- NOTE | 2017-10-03 08:04 | NUR ---
PT RESTING AT BEDSIDE, NO DISTRESS, DENIES PAIN AND SOB. WOUND VAC IN PLACE. PT USING SUCTION FOR INTERMITTENT COUGHING. PT HAS BEEN NPO SINCE MIDNIGHT. MASTECTOMY RESTRICTIONS IN PLACE. PT HAS DIFFICULTY MOVING BY HERSELF IN BED, BUT CAN TURN TO ONE SIDE WITH ASSIST. WILL CONTINUE TO MONITOR.
--- NOTE | 2017-10-03 08:32 | NUR ---
PATIENT IS SLEEPING. SHE WOULD LIKE TO TAKE A SHOWER IF SHE CAN TODAY.
--- NOTE | 2017-10-03 09:26 | NUR ---
PATIENT RECIEVED HIBBA CLEANSE BEFORE SURGICAL PROCEDURE
--- NOTE | 2017-10-03 11:20 | NUR ---
10/03/17 1120 Yolanda Lozano 1101 PATIENT ARRIVED TO PACU, SLEEPY ON 6L O2. WOUND VAC TO LEFT CHEST INTACT AND DRAINING. CENTRAL LINE ON LEFT CHEST IS INTACT WITH LR @ TKO. 1111 PATIENT ON ROOM AIR WITH 98% SATS. PATIENT WAKING AND REPORTS "STINGING" TO RIGHT CHEST BY DOES NOT ENDORSE PAIN. 1120 PATIENT SITTING UP, HAVING ICE CHIPS, NO NAUSEA, NO PAIN ENDORSED.
--- NOTE | 2017-10-03 12:51 | NUR ---
PT RETURNED FROM THE PACU AT 1130, VSS, ROUSABLE, NO DISTRESS. PT IS ON ROOM AIR, USED BSC AND ASSISTED TO BED. NO DRAINAGE TO WOUND SITE OR WOUND VAC. PT DENIES NEEDING PRN PAIN MEDS AT THIS TIME. WILL CONTINUE TO MONITOR.
--- NOTE | 2017-10-03 17:46 | NUR ---
pt is sitting up in bed eating dinner. pt pulse and temperature elevated, nurse notifed. call light within reach.
--- NOTE | 2017-10-03 18:00 | NUR ---
PT HAS BEEN LETHARGIC ALL AFTERNOON. NOTIFIED PROVIDER THAT PT IS FEBRILE 100.7 AND TACHYCARDIC HR 130. PT IS UP TO BEDSIDE, USING IS AND EATING DINNER. PT WILL WALK THE HALLS WITH APPLIQUER ASSIST AFTER SHE IS FINISHED EATING. GAVE PERCOCET WITH APAP, AND ORDERED LABS PER VERBAL WITH CHARGE NURSE AND LAB ASSIST.
--- NOTE | 2017-10-03 18:07 | NUR ---
VERIFIED WITH PROVIDER THAT PT SHOULD HAVE BOTH VANCO AND LEVOQUIN, PER SET KEY DRIVER REPORT. PROVIDER WANTS PT TO HAVE BOTH, NO CHAGNES IN ORDERS.
--- NOTE | 2017-10-03 18:43 | NUR ---
PT UP AND AMBULATING IN HALLWAY, AFTER 2 ROUNDS, HR OVER 145, PUT PT BACK TO BED, ENCOURAGED IS, GAVE ADDITIONAL TYLENOL, AND GAVE PT ICE PACKS.
--- NOTE | 2017-10-03 18:51 | NUR ---
PT HAS HAD HER PROCEDURE FOR HER WOUND VAC THIS MORNING, LETHARGIC THIS AFTERNOON. FEVER REPORTED TO PROVIDER, PT UP WALKING, DOING IS, LABS DRAWN AND SENT. PT TACHYCARDIC INTERMITTENTLY DURING THIS AFTERNOON, INCREASING TACHYCARDIA WITH AMBULATION, RETURNED TO BED. PT GIVEN ADDITIONAL TYLENOL AND ICE PACKS WHILE DOING IS. PT HAS ONLY REQUESTED PAIN MANAGEMENT ONCE, AND AT END OF SHIFT, PT RATES PAIN 2/10.
--- NOTE | 2017-10-03 19:15 | NUR ---
BEDSIDE REPORT RECEIVED FROM OFFGOING RN. PT SITTING UP IN BED. DENIES NEEDS AT THIS TIME. CALL LIGHT WITHIN REACH.
--- NOTE | 2017-10-03 19:16 | NUR ---
PT CENTRAL LINE BLOOD DRAW PERFORMED BY RN, CHANGED CLAVPatricia AND HEPARINIZED AFTER COMPLETION, LAB SUBMITTED PER PROTOCOL.
--- NOTE | 2017-10-03 22:06 | NUR ---
DR BARRIGA CALLED THIS UNIT R/T THIS PT. NOTIFIED OF PTS PULSE OF 101. NO NEW ORDERS
--- NOTE | 2017-10-03 22:07 | NUR ---
PT ASSESSMENT COMPLETE. PT RATES PAIN 03/27. DENIES SOB OR NAUSEA AT THIS TIME. PT REPORTS OCC DRY NONPRODUCTIVE COUGH. DRESSING TO L CHEST, GAUZE AND TAPE, C/D/I. WOUND VAC DRESSING TO R CHEST C/I. DRESSING TO L KNEE C/D/I. SERSANG DRAINAGE PRESENT IN WOUND VAC CANISTER. PT DENIES NEEDS AT THIS TIME, SITTING UP IN BED WATCHING TV, EATING HARD CANDY. CALL LIGHT WITHIN REACH.
--- NOTE | 2017-10-03 23:20 | NUR ---
V/S, I&O DONE AND CHARTED. ASSISTED USE THE BEDSIDE COMMODE. PATIENT ASKED FOR 7UP, GIVEN. CALL LIGHT AND BEDSIDE TABLE WITHIN REACH.
--- NOTE | 2017-10-04 01:45 | NUR ---
PT RESTING IN BED WITH EYES CLOSED. RESPIRATIONS EVEN AND UNLABORED. PT APPEARS TO BE SLEEPING, DOES NOT WAKE WHILE EMBEDDED SYSTEMS SOFTWARE ENGINEER IN DOORWAY. CALL LIGHT WITHIN REACH.
--- NOTE | 2017-10-04 03:17 | NUR ---
PT RESPORTS INCREASED PAIN TO R CHEST, REQUESTS PAIN MEDICATION. RATES [PAIN 4-5/10. PRN PERCOCET ADMINISTERED. PT ASSESSMENT COMPLETE, UNCHANGED FROM PREVIOUS. PT UP TO BSC WITH SBA AND ASSISTED BACK TO BED. PT DENIES FURTHER NEEDS AT THIS TIME. CALL LIGHT WITHIN REACH.
--- NOTE | 2017-10-04 06:09 | NUR ---
PT RESTING OFF AND ON THIS SHIFT. PERCOCET X1 FOR PAIN. PT CONTINUES TO BE TACYCARDIC. OCCASIONAL COUGH. WOUND VAC TO R CHEST. GAUZE AND TAPE TO PREVIOUS CHEST TUBE SITE L CHEST, C/D/I. DRESSING R KNEE C/D/I. R ARM RESTRICTIONS. 1 PA TO BSC. CENTRAL LINE, HEP LOCKED WHEN NOT IN USE. IV VANCO, PO LEVAQUIN. AFEBRILE THIS SHIFT.
--- NOTE | 2017-10-04 08:45 | NUR ---
CARE CONFERENCE PATIENT, DR BARRIGA, MYSELF, FUR TRAPPER PATIENT RESTING IN BED. DR BARRIGA DISCUSSED DIAGNOSIS, TREATMENTS, PLAN. QUESTIONS ANSWERED. NO DISCHARGE PLANNED TODAY. POSSIBLE CLOSURE OF WOUNDS BY SURGERY BEFORE DISCHARGE. PATIENT STATES ALL QUESTIONS HAVE BEEN ANSWERED AT THIS TIME.
--- NOTE | 2017-10-04 09:11 | NUR ---
MORNING ASSESSMENT AND MEDICATIONS DUE. THIS RN TO BEDSIDE. PT WATCHING TV AND FINISHING BREAKFAST. PT DENIES PAIN AND NAUSEA THIS MORNING. WOUND VAC IN PLACE AND RUNNING WITHOUT ISSUE. ~150ML OF SERIOUS ANGANOUS DRAINAGE NOTED IN DRAINAGE COMPARTMENT. ASSESSMENT DONE. PT HAS REMOVED DRESSING FROM LEFT KNEE. NEW DRESSING APPLIED BY THIS RN. MEDICATIONS GIVEN (SEE MAR). PT CONTINUES WATCHING TV. ENCOURAGED TO AMBUATE TODAY. CHART MADE ON BOARD FOR RECORD KEEPING AND MOTIVATION. BED RAILS UP. CALL LIGHT WITHIN REACH.
--- NOTE | 2017-10-04 09:48 | NUR ---
THIS RN CONSULTED WITH RN WHO COMPLETED VANCO INFUSION ([facility]). MAGED STATES LINE WAS NOT HEPARIN LOCKED AT THAT TIME. THIS RN TO BEDSIDE. CENTRAL LINE ASSESSED, WNL. BRISK BLOOD RETURN NOTED IN ALL THREE LUMENS, ALL THERE LUMENS HEPARIN LOCKED PER PROTOCOL. ALCOHOL CAPS APPLIED. MEDICATIONS GIVEN (SEE MAR). PT UP TO AMBULATE WITH PHYSICAL THERAPY. NO REQUESTS OR COMPLAINTS.
--- NOTE | 2017-10-04 10:09 | NUR ---
PATIENT SITTING IN CAHIR READING A BOOK. CALL LIGHT IN REACH. NO FURTHER NEEDS AT THIS TIME.
--- NOTE | 2017-10-04 10:11 | NUR ---
PATIENT RETURNED FROM WALK WITH PHYSICAL THERAPY. PATIENT READING IN CHAIR, NO PAIN OR REQUESTS AT THIS TIME. WOUND VAC ATTACHED. CALL LIGHT WITHIN REACH.
--- NOTE | 2017-10-04 11:39 | NUR ---
FOCUSED ASSESSMENT AND FLUIDS DUE. THIS RN TO BEDSIDE. FLUIDS STARTED BY [facility] (SEE HER NOTE). ASSESSMENT DONE. WOUND VAC DRAINING, ~155 MLS OF SERIOUSANGANOUS DRAINAGE NOTED IN [place]. DRESSING TO LEFT KNEE AND CHEST (FROM CHEST TUBE PLACEMENT) ARE CDI AT THIS TIME. PT TRANSFERES SELF BACK TO BED. PT STATES SHE WILL TAKE ANOTHER WALK AFTER LUNCH. LUNCH ARRIVED. PT WATCHING TV AND EATING. NO REQUESTS OR COMPLAINTS.
--- NOTE | 2017-10-04 11:41 | NUR ---
FLUIDS ORDERED. PATIENT MOVED SELF FROM CHAIR TO BED. CENTRAL LINE ACCESSED, 5 ML WITHDRAWN. BRISK BLOOD RETURN NOTED. LR AT 1000 ML/HR STARTED. PATIENT EATING LUNCH WITH SISTER AT BEDSIDE.
--- NOTE | 2017-10-04 12:40 | NUR ---
IV FLUIDS DONE. REMOVED FLUID LINE. FLUSHED WITH NS. BRISK BLOOD RETURN NOTED. FLUSHED WITH HEPARIN PER PROTOCOL (SEE MAR). PATIENT ASSISTED TO SHOWER BY LINE PALLETIZER AND SISTER.
--- NOTE | 2017-10-04 13:26 | NUR ---
PATIENT UP FROM BED TO BSC SBA. PATIENT UP FROM BSC TO SHOWER CHAIR SBA. PATIENT PROVIDED WITH BATH WIPES THEN DESKTOP ADMINISTRATOR HELPED WASH HAIR IN SHOWER. NEW GOWN PROVIDED. PATIENT BACK IN BED RESTING. CALL LIGHT IN REACH. NO FURTHER NEEDS AT THIS TIME.
--- NOTE | 2017-10-04 14:38 | NUR ---
PATIENT RESTING IN BED WITH EYES CLOSED. V/S TAKEN. CALL LIGHT IN REACH NO FURTHER NEEDS AT THIS TIME.
--- NOTE | 2017-10-04 17:31 | NUR ---
MEDICATIONS AND ASSESSMENT DUE. PATIENT RESTING IN BED. PATIENT REPORTED PAIN AND REQUESTED MEDICATION. MEDICATIONS GIVE (SEE MAR). ASSESSMENT DONE. WOUND VAC ASSESSED. DRESSINGS CDI. PATIENT EATING DINNER, REQUESTED ICE WHICH WAS DELIVERED. NO FURTHER REQUESTS OR COMPLAINTS AT THIS TIME.
--- NOTE | 2017-10-04 18:04 | NUR ---
GROUP A STREP NECROTIZING INFECTION OF RIGHT BREAST POST OP DAY 1 FOR MASTECTOMY. AMBULATED X2. INDEPENDENT IN THE ROOM. SUBCLAVIAN CENTRAL LINE, HEPARIN LOCKED. PRN PERCOCET GIVEN ONCE FOR 4/10 PAIN. WOUND VAC TO RIGHT BREAST. DRESSING CHANGE TO LEFT KNEE DONE THIS SHIFT. IV ANTIBIOTICS. FAMILY INVOLVED WITH CARE. FLUID BOLUS GIVEN FOR TACHYCARDIA. PATIENT USES CALL LIGHT APPROPRIATELY.
--- NOTE | 2017-10-04 18:22 | NUR ---
PATIENT SITTING UP IN BED USING IS. CALL LIGHT IN REACH. NO FURTHER NEEDS AT THIS TIME.
--- NOTE | 2017-10-04 19:30 | NUR ---
RECIEVED REPORT FROM [facility]. PT RESTING IN BED. PT DENIES PAIN AT THIS TIME. CENTRAL LINE HEPARIN LOCKED. SEROSANGUINOUS DRAINAGE OUT OF RT BREAST WOUND VAC. CALL LIGHT IN REACH AND NO REQUESTS AT THIS TIME.
--- NOTE | 2017-10-04 20:18 | NUR ---
PT AMBULATED HALLWAY X2 LAPS WITH LIVE IN HOUSEKEEPER ASSIST. STEADY GAIT.
--- NOTE | 2017-10-04 20:22 | NUR ---
ACCOMPANIED PATIENT WALK AROUND THE HALLWAY X3 .
--- NOTE | 2017-10-04 20:23 | NUR ---
ASSISTED PATIENT USE THE COMMODE.
--- NOTE | 2017-10-04 21:40 | NUR ---
ASSESSMENT COMPLETE. CENTRAL LINE FLUSHED WNL, GOOD BLOOD RETURN, HEPARIN LOCKED. DRESSINGS CLEAN, DRY, AND INTACT, L CHEST AND L KNEE. R CHEST WOUND VAC DRAINING SS WNL. RATES PAIN 2/10, TOLERABLE FOR HER. ICE WATER AT BEDSIDE. CALL LIGHT IN REACH.
--- NOTE | 2017-10-04 22:30 | NUR ---
PATIENT CALLED ASKING FOR PAIN MEDS, [facility] NOTIFIED. ASSISTED PATIENT TO USE BEDSIDE COMMODE AND BACK TO BED. PATIENT VOIDED 400ML AND LARGE FORMED BOWEL MOVEMENT.
--- NOTE | 2017-10-04 22:43 | NUR ---
PT C/O PAIN 05/25 "ALL OVER BODY". PT GIVEN PRN PAIN MEDICATIONS, ICE WATER. SCD'S APPLIED. CALL LIGHT IN REACH.
--- NOTE | 2017-10-05 00:34 | NUR ---
PT SLEEPING IN BED. BREATHING EVEN AND UNLABORED. SCD'S IN PLACE. CALL LIGHT IN REACH.
--- NOTE | 2017-10-05 02:28 | NUR ---
PT SLEEPING IN BED. UNLABORED BREATHING, CALL LIGHT IN REACH.
--- NOTE | 2017-10-05 05:19 | NUR ---
ASSESSMENT COMPLETED. L KNEE AND L CHEST DRESSINGS CLEAN, DRY, AND INTACT. R CHEST WOUND VAC DRAINING SS WNL. PRN PAIN MEDICATION FOR PAIN 05/25. ABX INFUSING WNL. SCD'S ON AND CALL LIGHT IN REACH. NO FURTHER REQUESTS.
--- NOTE | 2017-10-05 05:28 | NUR ---
PT AMBULATED HALLWAY, X2 LAPS. R CHEST WOUND VAC DRAINING SS WNL. L CHEST AND L KNEE DRESSINGS CLEAN, DRY, AND INTACT. PRN PAIN MEDICATIONS GIVEN. ABX GIVEN ORDERED. CENTRAL LINE FLUSHED WITH BLOOD RETURN, HEPARIN LOCKED. PT UP TO BEDSIDE COMMODE WITH SBA, QS URINE OUTPUT, BM X1. SCD'S ON.
--- NOTE | 2017-10-05 07:31 | OR ---
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 POSTOPERATIVE DIAGNOSES: 1. 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 2. Minimal residual necrotic fat of axilla. PROCEDURES: 1. Exam under anesthesia. 2. Debridement of necrotic fat, axilla and wound. 3. Wound cultures. 4. Re-application of wound VAC device. ANESTHESIA: Local with monitored anesthesia care, Shu Tinajero CRNA. INDICATION: This 27-year-old white woman was admitted by me on September 27, 2017 with severe sepsis and markedly edematous and infected right breast. She underwent incision and drainage of purulent material the night of operation, but required pressor support there after postoperatively, which did not resolve in a prompt way suggestive of ongoing infection. She did have progression of necrotic skin and on September 29, 2017, underwent exploration showing extensive trabeculation of purulent material throughout the parenchyma of the breast and non-viability of the breast largely, requiring total mastectomy. A wound VAC was applied. She had rather prompt resolution of her severe systemic sepsis. She has been treated with vancomycin and meropenem, now on vancomycin and oral Levaquin. Cultures ultimately showed group A strep (strep pyogenes), which was pansensitive. She has been transferred to the regular nursing floor. Her wound VAC has been in place for four days and dressing change is now needed. Given the need for wound evaluation and additional debridement as necessary as well as wound VAC dressing change. I have recommended operative management. The risks of bleeding, infection, so forth were Electronically Signed By: KEYSHAWN BARRIGA MD 10/05/17 0731 PATIENT NAME: AUSTIN BAILEY OPERATIVE REPORT DATE OF : 89 REPORT #: [id number] PHYSICIAN: KEYSHAWN BARRIGA MD PCP: NATHAN MITCHELL MD REPORT IS CONFIDENTIAL AND NOT TO BE RELEASED WITHOUT AUTHORIZATION [facility] [address], [place] [address] Signed reviewed with her. She understands wished to proceed. FINDINGS: Marked improvement of the area of the chest wall and soft tissue was noted. There were few areas of nonviable fat, which were debrided. Cultures were obtained. The wound VAC device was applied as well. Special note, examination of the superior and inferior chest wall areas suggest that closure of this wound without need for skin grafting will be possible and ultimately reconstruction of the breast as well. DESCRIPTION OF PROCEDURE: The patient was brought to the operating room and given intravenous sedation. She had received antibiotics earlier including vancomycin and Levaquin. After satisfactory sedation, the adhesive was removed from the wound VAC device. The wound VAC explanted. Photographs were taken. The wound was largely impressively well granulating. The surrounding soft tissue was prepared with a Betadine solution and draped sterilely. Close examination of the wound including the posterior axillary fat area showed some areas of non-viability that was just beneath the skin surface. These areas were doubly debrided sharply back to viable tissue. Less so was such a finding medially. Manipulation of the soft tissue cephalad and inferior to the central portion of excision showed subcutaneous tissue and skin, which was quite viable and likely able to be advanced for wound closure in the near future. This might obviate the need for skin grafting as a temporizing measure anticipating ultimately more elaborate reconstructive surgery. A large and a small wound VAC were placed. The smaller in the axilla, larger covering the defect itself and with standard technique the adhesive applied and ultimately wound VAC suction device applied. Good adherence was noted. The patient was ultimately taken to recovery room in good condition, having suffered no complication. Sponge, needle, and instrument counts reported as correct x3. Keyshawn Barriga MD /MODL /[id number] Electronically Signed By: KEYSHAWN BARRIGA MD 10/05/17 0731 PATIENT NAME: AUSTIN BAILEY OPERATIVE REPORT DATE OF : 89 REPORT #: [id number] PHYSICIAN: KEYSHAWN BARRIGA MD PCP: NATHAN MITCHELL MD REPORT IS CONFIDENTIAL AND NOT TO BE RELEASED WITHOUT AUTHORIZATION [facility] [address] [place] [id number] Signed cc: MD Nathan Tavares MD Cynthia Rasch, MD Lohith Veerappa Lassiter, MD Copies: MARIAMA VAN REX MD RASCH,LAURA LASSITER,WOLF CARRINGTON MD ~ Electronically Signed By: KEYSHAWN BARRIGA MD 10/05/17 0731 PATIENT NAME: BAILEYAUSTIN ROSE OPERATIVE REPORT DATE OF : 89 REPORT #: [id number] PHYSICIAN: KEYSHAWN BARRIGA MD PCP: NATHAN MITCHELL MD REPORT IS CONFIDENTIAL AND NOT TO BE RELEASED WITHOUT AUTHORIZATION
--- NOTE | 2017-10-05 07:43 | NUR ---
ASSESSMENT AND MEDICATIONS DUE. PATIENT RESTING IN BED. ASSESSMENT DONE. WOUND VAC HAS ~400 ML SEROSANGANOUS DRAINAGE. DRESSING CDI. KNEE DRESSING CDI. CHEST TUBE DRESSING CHANGED BECAUSE IT WAS COMING LOOSE, CDI. PATIENT DENIES PAIN AND NAUSEA. AMBULATION ENCOURAGED. EACH OF THE THREE LUMENS OF THE CENTRAL LINE WERE FLUSHED AND HEPARIN LOCKED PER PROTOCOL. MEDICATIONS GIVEN. PATIENT HAS NO FURTHER REQUESTS AT THIS TIME.
--- NOTE | 2017-10-05 09:35 | NUR ---
PATIENT IN BED FINISHED BREAKFAST. PATIENT DOES NOT WANT A SHOWER NOR BATH AT THIS TIME. TOLD PATIENT IF SHE CHANGES HER MIND LET ME KNOW. CALL BUTTON IN REACH NO OTHER NEEDS AT THIS TIME.
--- NOTE | 2017-10-05 11:42 | NUR ---
ASSESSMENT DUE. PATIENT RESTING IN BED. WOUND VAC ~425 ML OF SEROUSSANGINOUS DRAINAGE. DRESSINGS CDI. PATIENT DENIES PAIN AND NAUSEA. NO FURTHER REQUESTS OR COMPLAINTS AT THIS TIME. CALL LIGHT WITHIN REACH.
--- NOTE | 2017-10-05 12:27 | NUR ---
CENTRAL LINE DRESSING CHANGED PER PROTOCOL. HUBS CHANGED. PATIENT TOLERATED PROCEDURE WELL. PATIENT AMBULATING IN HALLWAYS WITH [facility].
--- NOTE | 2017-10-05 13:37 | NUR ---
WOUND VAC CANISTER CHANGE NEEDED. 455ML SERIOUSANGUANOUS DRANAGE NOTED IN CANISTER. CANISTER REPLACED PER PROTOCOL AND MANUFACTURES INSTRUCTIONS. WOUND VAC REACTIVATED, NO SUCTION LEAKES NOTED. PT UP TO CHAIR, PLANING TO WALK AGAIN "SOON." NO REQUESTS OR COMPLAINTS.
--- NOTE | 2017-10-05 13:57 | NUR ---
PT SITTING IN CHAIR, WATCHING TV. PT IS ALERT, ORIENTED AND PLEASANT. PT SEEMED COMFORTABLE VISITING WITH ME, LET HER KNOW THAT WE HAVE READING MATERIAL IF SHE RUNS SHORT AND ENCOURAGED HER TO LET HER RN KNOW HOW HER PAIN IS. SHE MENTIONED THAT IT IS BETTER TODAY, AND SEEMED TO ENJOY AMBULATING IN THE HALLS. EXTENDED A BLESSING, WILL FOLLOW NEEDED
--- NOTE | 2017-10-05 14:36 | NUR ---
PATIENT CALL LIGHT ON. PATIENT REQUESTED ASSISTANCE PLUGGING IN HER WOUND VAC AND SOME MORE APPLE JUICE BOTH OF WHICH WERE PROVIDED. PATIENT HAS NO FURTHER REQUESTS AT THIS TIME. CALL LIGHT WITHIN REACH.
--- NOTE | 2017-10-05 16:50 | NUR ---
ASSESSMENT AND MEDICATIONS DUE. PATIENT AMBULATED TO THE TOILET. WOUND VAC ASSESSED, CDI, ~25 ML OF SEROSANGINOUS DRAINAGE NOTED. KNEE AND CHEST TUBE SITE DRESSING CDI. LAB DRAWN FROM CENTRAL LINE. FLUSHED AND HEPARIN LOCKED PER PROTOCOL. SURGICAL CONSENT SIGNED AND WITNESSED. PATIENT VERBALIZES UNDERSTANDING OF DISCUSSION WITH MD, NO QUESTIONS AT THIS TIME. PATIENT RESTING IN BED WITH SCDS AND SIDE RAILS UP. CALL LIGHT WITHIN REACH.
--- NOTE | 2017-10-05 17:20 | NUR ---
PATIENT HERE FOR NECROTIZING INFECTION OF RIGHT BREAST RESULTING IN RIGHT MASECTOMY. SURGERY SCHEDULED FOR TOMORROW. NPO AT MIDNIGHT. CONSENT SIGNED AND WITNESSED. PATIENT MOSTLY INDEPENDENT IN ROOM. REQUESTS ASSISTANCE WITH PLUGGING WOUND VAC IN AFTER AMBULATION. PATIENT AMBULATED X3. CENTRAL LINE HEPARIN LOCKED. PATIENT USES CALL LIGHT APPROPRIATELY.
--- NOTE | 2017-10-05 17:51 | NUR ---
PATIENT IN BED WATCHING TV. FRESH WATER GIVEN. CALL LIGHT IN REACH. NO FURTHER NEEDS AT THIS TIME.
--- NOTE | 2017-10-05 18:58 | NUR ---
THIS RN TO ROOM TO CHECK ON PT. PT REPORTS 4/10 PAIN. SEE MAR FOR MEDICATION GIVEN. PT WATCHING TV. PT STATES SHE WILL AMBULATE "A LITTLE LATER." NO ADDITIONAL QUESTIONS OR CONCERNS AT THIS TIME.
--- NOTE | 2017-10-05 19:05 | NUR ---
RECEIVED REPORT FROM DAY SHIFT RN. PATIENT IS RESTING IN BED WATCHING TV. PATIENT DENIES ANY NEEDS AT THIS TIME. CALL LIGHT IN REACH.
--- NOTE | 2017-10-05 19:45 | NUR ---
PATIENT UP AMBULATING IN THE HALLWAY.
--- NOTE | 2017-10-05 20:40 | NUR ---
PATIENT IS BACK IN BED RESTING. PATIENT ASSESMENT COMPLETED. PATIENTS EVENING MEDICATIONS GIVEN PER ORDER. PATIENT RATES PAIN AT A 4/10. PATIENT GIVEN PRN PAIN MEDICATTION PER REQUEST. PATIENT HAS WOUND VAC IN PLACE AND IS FUNCTIONING WNL. PATIENT HAS DRESSING IN PLACE ON LEFT KNEE THAT IS C/D/I, NO DRAINAGE NOTED. PATIENT ALSO HAS DRESSING BY LEFT BREAST THAT HAS MINIMAL DRAINAGE NOTED THAT APPEARS TO BE OLD. PATIENT GIVEN JELLO WITH PAIN MEDICATION. PATIENT DENIES ANY FURTHER NEEDS AT THIS TIME. IV ABX INFUSING. CALL LIGHT IN REACH.
--- NOTE | 2017-10-05 22:30 | NUR ---
IV ABX COMPLETED. PATIENT IS NOW HEPLOCKED. PATIENT DENIES ANY NEEDS. CALL LIGHT IN REACH.
--- NOTE | 2017-10-05 23:29 | NUR ---
PATIENT IS RESTING IN BED READING A BOOK. NO NEEDS NOTED. CALL LIGHT IN REACH.
--- NOTE | 2017-10-06 00:54 | NUR ---
PATIENT IS RESTING IN BED READING A BOOK. NO NEEDS NOTED. CALL LIGHT IN REACH.
--- NOTE | 2017-10-06 01:48 | NUR ---
PATIENT GIVEN PRN PAIN MEDICATION FOR 5/10 PAIN IN HER RIGHT WOUND VAC AREA. PATIENT DENIES ANY FURTHER NEEDS. CALL LIGHT IN REACH. PATIENT HAS BEEN NPO SINCE MIDNIGHT.
--- NOTE | 2017-10-06 03:40 | NUR ---
PATIENT IS RESTING IN BED WITH EYES CLOSED, RR 18. CALL LIGHT IN REACH.
--- NOTE | 2017-10-06 04:47 | NUR ---
PATIENT RESTED WELL FOR THE LATER PART OF THE SHIFT. PATIENT HAS BEEN NPO SINCE MIDNIGHT. DONNAN IS INDEPENDENT IN THE ROOM. PATIENT HAS SCDS IN PLACE. PATIENT HAS WOUND VAC APPLIED TO LEFT BREAST. PATIENT HAS DRESSING ON LEFT KNEE THAT IS C/D/I AND NO DRAINAGE IS NOTED. PATIENT HAS LEFT SUBCLAVIAN LINE THAT IS HEP LOCKED. PATIENT HAS DRESSING ON LEFT SIDE OF BREAST FROM PREVIOUS CHEST TUBE THAT HAS MINIMAL DRAINAGE NOTED. PATIENT RECEIVED PRN PAIN MEDICATION X2. PATIENT AMBUALTED IN THE HALLWAY X1. AAOX3.
--- NOTE | 2017-10-06 05:34 | NUR ---
V/S I&O PRE OP WIPES DONE AND CHARTED. BED LINEN CHANGED.
--- NOTE | 2017-10-06 05:39 | NUR ---
VITALS TAKEN AND RECORDED BY ELEVATOR BUILDER. PATIENTS MORNING MEDICATIONS GIVEN PER ORDER. PATIENT UP TO THE BATHROOM AND VOIDED. PATIENTS WIPE DOWN FOR SURGERY COMPLETED. PATIENT DENIES ANY PAIN AT THIS TIME. SHEETS CHANGED AND NEW GOEN PLACE ON PATIENT. PRE-OP CHECKLIST STARTED. PATIENT DENIES ANY QUESTIONS OR NEEDS AT THIS TIME. CALL LIGHT IN REACH.
--- NOTE | 2017-10-06 06:00 | NUR ---
PATIENT RESTED WELL FOR THE LATER PART OF THE SHIFT. PATIENT HAS BEEN NPO SINCE MIDNIGHT. PATIENT IS INDEPENDENT IN THE ROOM. PATIENT HAS SCDS IN PLACE. PATIENT HAS WOUND VAC APPLIED TO RIGHT BREAST. PATIENT HAS DRESSING ON LEFT KNEE THAT IS C/D/I AND NO DRAINAGE IS NOTED. PATIENT HAS LEFT SUBCLAVIAN LINE THAT IS HEP LOCKED. PATIENT HAS DRESSING ON LEFT SIDE OF BREAST FROM PREVIOUS CHEST TUBE THAT HAS MINIMAL DRAINAGE NOTED. PATIENT RECEIVED PRN PAIN MEDICATION X2. PATIENT AMBUALTED IN THE HALLWAY X1. AAOX3.
--- NOTE | 2017-10-06 06:37 | NUR ---
PT LEFT WITH LAMIN, RN TO SURGERY.
--- NOTE | 2017-10-06 09:21 | NUR ---
MET WITH PT JUST BEFORE SURGERY. SHE SEEMED PREPARED, A LITTLE ANXIOUS. PT REQUESTED PRAYER, WILL FOLLOW NEEDED
--- NOTE | 2017-10-06 09:25 | NUR ---
10/06/17 0925 Leigha Forde 0913 PT ARRIVED TO PACU ON 6L, RESP EVEN AND UNLABORED. PT COUGHING OFF AND ON. PT REPORTS PAIN 3/10 AND TOLERABLE. 0917 O2 MASK REMOVED, O2 SAT 100%. 0920 NC PLACED AT 2L D/T O2 SAT DECREASE TO 86%, PT ENCOURAGED TO DEEP BREATH AND COUGH. 0925 PT RESTING IN BED WITH EYES CLOSED.
--- NOTE | 2017-10-06 10:47 | NUR ---
PT RETURNED FROM PACU, ROUSABLE, AND DROWSY. PT DENIES PAIN, NO DISTRESS, MILD SOB REMEDIED WITH 2LNC. 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 SURGICAL SITE INTACT, MINOR DRAINAGE TO 2 MARKY DRAINS. PT REQUESTED ICE CREAM, SUPPLIED TO PATIENT, REGULAR DIET ORDERED. WILL CONTINUE TO MONITOR.
--- NOTE | 2017-10-06 14:00 | NUR ---
PT UP AT BEDSIDE, DOING LAPS INDEPENDENTLY THIS AFTERNOON, TOLERATED WELL. PT REMAINS AFEBRILE, AND STATES SHE IS DOING WELL. TOLERATED LUNCH AND DENIES SOB. NO DISTRESS. [address] ARE IN PLACE AND DRAINING SANGUINOUS FLUID. WILL CONTINUE TO MONITOR.
--- NOTE | 2017-10-06 14:29 | NUR ---
PATIENT SITTING IN CHAIR WATCHING TV. FRESH WATER GIVEN. CALL LIGHT IN REACH. NO FURTHER NEEDS AT THIS TIME.
--- NOTE | 2017-10-06 17:53 | NUR ---
PATIENT UP TO BATHROOM, INDEPENDENT. FRESH WATER GIVEN. PATIENT NOW AMBULATING IN HALLWAY.
--- NOTE | 2017-10-06 18:27 | OR ---
[facility] [address], [place] [address] Signed DATE OF OPERATION: 09/27/2017 SURGEON: Keyshawn Barriga MD PREOPERATIVE DIAGNOSES: 1. History of necrotizing soft tissue infection, right breast with systemic sepsis. 2. Status post total mastectomy and wound VAC dressing. POSTOPERATIVE DIAGNOSES: 1. History of necrotizing soft tissue infection, right breast with systemic sepsis. 2. Status post RIGHT total mastectomy and wound VAC dressing. 3. 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 PROCEDURES: 1. Exam under anesthesia. 2. Debridement of skin and fat of lateral axillary soft tissue. 3. Superior and inferior chest wall flap elevation and complex layered wound closure with placement of drain. ANESTHESIA: General endotracheal; Shu Tinajero CRNA. DRAINS: 7 mm Kj and 10 mm Kj. INDICATION: This is a 27-year-old woman was admitted by me on September 27, 2017, with what proved to be a necrotizing soft tissue infection related to group A strep (strep pyogenes). She was originally seen with blistering of the skin, swelling and erythema and underwent incision and drainage, the night of admission. This showed purulent material, for which multiple drains were placed, but she did not have as rapid improvement from her sepsis as I had expected. On that basis, she returned to the OR where she ultimately required right total mastectomy for necrotizing soft tissue infection of the breast. A wound VAC was placed. She had prompt resolution of her symptoms of sepsis after this debridement and use of vancomycin and meropenem antibiotics and has transitioned to vancomycin and now oral Electronically Signed By: KEYSHAWN BARRIGA MD 10/06/17 1827 PATIENT NAME: AUTSIN BAILEY OPERATIVE REPORT DATE OF : 89 REPORT #: [id number] PHYSICIAN: KEYSHAWN BARRIGA MD PCP: NATHAN HAQUE MD REPORT IS CONFIDENTIAL AND NOT TO BE RELEASED WITHOUT AUTHORIZATION [facility] [address], [place] [address] Signed Levaquin. Cultures did show group A strep ( Strep pyogenes). She has undergone wound VAC dressing change on Wednesday (today is Wednesday) and was found to have excellent granulation of the wound bed. The axillary and lateral chest wall residual soft tissue was likely able to be reapproximated. However, given the extent of resection of skin and so forth, closure of the main portion of the wound in the central and medial portion would require elevation of flaps to mobilize tissue for soft tissue closure. It is anticipated she will have myocutaneous flap or similar such reconstruction in the future. At this point, given the appearance of the wound, most recent dressing change and her clinical resolution of sepsis, wound closure is anticipated at this time as well as additional debridement as necessary. The risks of bleeding, infection, failure of closure of wound despite attempts to do so, and so forth were all reviewed and understood. FINDINGS: An excellent granulating base in the chest wall and pectoralis as well as the edges of the soft tissue was noted. Laterally in the axilla, there was still some nonviable fat, though did not appear infected in any way. This was excised completely back to viable fat. The superior and inferior flaps were developed of the chest wall to allow for closure, which was ultimately accomplished in a layered way. Drains were placed as well. DESCRIPTION OF PROCEDURE: The patient was brought to the operating room, given a general endotracheal anesthetic. She is on continuous dosing episodically of vancomycin intravenously as well as oral Levaquin. The wound VAC was removed and a photograph was taken showing excellent granulation throughout, though an area of nonviable fat in the axillary area without sign of infection proper was noted. The chest wall and wound were prepared with Betadine solution and draped sterilely. Mobilization of the superior and inferior areas of the axilla would allow for primary closure, but the area of flaps would certainly not allow for closure without mobilization of superior and inferior flaps. Electronically Signed By: KEYSHAWN BARRIGA MD 10/06/17 1827 PATIENT NAME: AUSTIN BAILEY OPERATIVE REPORT DATE OF : [birth year] REPORT #: [id number] PHYSICIAN: KEYSHAWN BARRIGA MD PCP: NATHAN HAQUE MD REPORT IS CONFIDENTIAL AND NOT TO BE RELEASED WITHOUT AUTHORIZATION [address] [address] Signed Nonviable fat was noted in the axillary fold. Allis clamps were applied to the skin to tether this tissue and using sharp and electrocautery dissection, wide resection of the skin and nonviable fat was undertaken back to bleeding viable fat. Hemostasis was assured with electrocautery. The superior and inferior skin flaps were then developed over the pectoralis muscle. The plane of dissection over the pectoralis fascia showed good viability of the superior and inferior flaps. Reapproximation of the midportion of the wound was undertaken with 2-0 Vicryl in the deep layer of the thick flap temporarily. Additional 2-0 Vicryl was used to close the deepest layer, which of course had a wall of granulation on both superior and inferior flap sides. A stab incision was made in the medial lower chest wall allowing for placement of a 7 mm flat Kj drain beneath the superior flap. The skin was then reapproximated with a 2-0 nylon suture in a interrupted technique in vertical mattress configuration. Stabilization of the flaps during closure allowed for good closure of the wound in the anterior medial aspect. The axilla was re-examined at this point and tissue throughout was completely viable. A separate stab incision was made and a 10 mm Kj drain placed in the lower aspect and extended beneath the inferior flap. The axillary soft tissue was then reapproximated with interrupted 2-0 Vicryl and skin closed again with interrupted 2-0 nylon in a vertical mattress configuration. There appeared to be excellent viability to upper and lower flaps. A Mepilex silver sponge dressing was applied as were OpSite. Drains attached to bulb suction. Blood loss was 25 mL or less. Sponge, needle, and instrument counts reported as correct x3. MD TAMARA Gilbert/CARMEN /[id number] cc: Dr. Byron Mcdowell Electronically Signed By: KEYSHAWN BARRIGA MD 10/06/17 1827 PATIENT NAME: BAILEYAUSTIN FABIAN OPERATIVE REPORT DATE OF : [birth year] REPORT #: [id number] PHYSICIAN: KEYSHAWN BARRIAG MD PCP: NATHAN HAQUE MD REPORT IS CONFIDENTIAL AND NOT TO BE RELEASED WITHOUT AUTHORIZATION [facility] [address] [place] [place], [place] [address] Signed Nathan Haque MD Copies: NATHAN HAQUE MD ~ Electronically Signed By: KEYSHAWN BARRIGA MD 10/06/17 1827 PATIENT NAME: AUSTIN BAILEY OPERATIVE REPORT DATE OF : 89 REPORT #: [id number] PHYSICIAN: KEYSHAWN BARRIGA MD PCP: NATHAN HAQUE MD REPORT IS CONFIDENTIAL AND NOT TO BE RELEASED WITHOUT AUTHORIZATION
--- NOTE | 2017-10-06 18:48 | NUR ---
PT HAS BEEN DOING LAPS EVERY HOUR THIS AFTERNOON, TOLERATED WELL. PT HAS EATEN DINNER AND OUTPUT HAS BEEN SUFFICIENT. LESS DRAINAGE TO BOTH MARKY DRAINS, EDUCATED PT ON HOW TO MANAGE DRAINS HERSELF. PT IS RESTING COMFORTABLY AT BEDSIDE AND HAS REFUSED PAIN MEDICATION.
--- NOTE | 2017-10-06 19:11 | NUR ---
RECEIEVED REPORT FROM [facility]. PT SLEEPING IN BED. MARKY DRAIN X2, MEPILEX, SURGICAL DRESSING IN PLACE ON RIGHT CHEST, DRAINING WNL. CENTRAL LINE HEPARIN LOCKED. CALL LIGHT WITHIN REACH.
--- NOTE | 2017-10-06 21:00 | NUR ---
ROUNDED CHARGE. PATIENT IS RESTING IN BED WATCHING TV. PATIENT DENIES ANY COMMENTS, QUESTIONS, OR CONCERNS. CALL LIGHT IN REACH.
--- NOTE | 2017-10-06 21:04 | NUR ---
ASSESSMENT COMPLETE. PT LAYING IN BED. DIMINISHED BILATERAL LOWER LUNGS, NO ADVENTITIOUS SOUNDS AUSCULTATED. PT ENCOURAGED TO USE I.S. AND DEMONSTRATED USE X2. RIGHT CHEST DRESSING CLEAN, DRY, AND INTACT X2. MARKY DRAINS STRIPPED BY PT, EDUCATION PROVIDED BY RN. BOTH DRAINS DRAINING SS FLUID WNL. PT C.O. NECK PAIN 2/10 AND DENIES R CHEST PAIN. CENTRAL LINE FLUSHED WITH BLOOD RETURN, HEPARIN LOCKED, ABX INFUSING WNL. ICE WATER AT BEDSIDE, CALL LIGHT IN REACH, AND NO FURTHER REQUESTS.
--- NOTE | 2017-10-06 22:07 | NUR ---
RESPONDED TO CALL LIGHT. PT REQUESTED PRN PAIN MEDICATIONS FOR RIGHT BREAST PAIN 4-06/24. PT UP INDEPENDENTLY TO VOID X1. GIVEN PILLOWS PER PT REQUEST. ICE WATER AT BED SIDE. NO FURTHER REQUESTS. CALL LIGHT IN REACH.
--- NOTE | 2017-10-06 22:46 | NUR ---
1 PA/SBA TO THE BATHROOM AND BACK TO BED. CALL LIGHT WITHIN REACH. NO OTHER NEEDS AT THIS TIME.
--- NOTE | 2017-10-07 00:17 | NUR ---
CALL LIGHT ANSWERED, PT ASSISTED TO REPOSITION BLANKETS. CALL LIGHT IN REACH, SCDS ON.
--- NOTE | 2017-10-07 00:32 | NUR ---
PT AWAKE IN BED. MINIMAL PAIN OF 2/10. CALL LIGHT IN REACH.
--- NOTE | 2017-10-07 02:52 | NUR ---
ASSESSMENT COMPLETE. RIGHT BREAST DRESSING CLEAN, DRY, AND INTACT. MARKY DRAINS X2 DRAINING WNL. LUNGS CLEAR THROUGHOUT. PILLOWS GIVEN PER PT REQUEST FOR COMFORT. WATER AT BEDSIDE, NO FURTHER REQUESTS. CALL LIGHT IN REACH.
--- NOTE | 2017-10-07 04:45 | NUR ---
RESPONDED TO CALL LIGHT. PT GIVEN PRN PAIN MEDICATION FOR RIGHT BREAST AND BACK PAIN 06/24. SCD'S IN PLACE AND CALL LIGHT IN REACH. NO FURTHER REQUESTS.
--- NOTE | 2017-10-07 06:10 | NUR ---
PT SLEPT ON AND OFF THROUGHOUT SHIFT. RIGHT BREAST DRESSING IS CLEAN, DRY, AND INTACT. MARKY DRAINS X2 DRAINING S.S FLUIDS WNL. PT DEMONSTRATED STRIPPING MARKY TUBING DRAINS DURING SHIFT. PT IS INDEPENDENT TO RESTROOM. CENTRAL LINE FLUSHED WITH BLOOD RETURN, AND HEPARIN LOCKED. PRN PAIN MEDICATIONS GIVEN X2. SCD'S IN PLACE AND CALL LIGHT IN REACH.
--- NOTE | 2017-10-07 06:52 | NUR ---
DRAINED MARKY DRAINS, S.S. FLUID, 15 ML IN DRAIN 1 AND 10 ML IN DRAIN 2 FOR ENTIRE SHIFT. NO C.O. PAIN AT THIS TIME. CALL LIGHT IN REACH.
--- NOTE | 2017-10-07 08:46 | NUR ---
I ASKED THE PATIENT IF SHE WOULD LIKE SOME BREAKFAST AND SHE SAID NO. SHE ALSO SAID SHE DID NOT SLEEP WELL LAST NIGHT. PATIENT IS NOW SLEEPING.
--- NOTE | 2017-10-07 09:50 | NUR ---
PT IS RESTING IN BED, PT STATES SHE IS TIRED, NO DISTRESS. PT INITIALLY WISHED TO SKIP BREAKFAST BUT NOW WANTS IT, REPAIR ORDER CLERK AT BEDSIDE FOR ORDER. DRESSINGS INTACT, MARKY DRAINS ARE DRAINING A MINIMAL AMOUNT OF SEROSANGUINOUS FLUID. PT DENIES FURTHER NEEDS AT THIS TIME. PT ADVISED LAPS TODAY WOULD BE HELPFUL FOR HER, PT PLANS TO AMBULATE AFTER BREAKFAST.= WILL CONTINUE TO MONITOR.
--- NOTE | 2017-10-07 11:48 | NUR ---
pt called to ask for assistance with finishing her bed bath. pt just needed help washing her upper back and washing her hair, as she is not to move her right arm. pt then dressed in a clean gown and is now sitting up in chair eating her lunch.
--- NOTE | 2017-10-07 12:45 | NUR ---
PATIENT WALKED FIVE LAPS AROUND MED SURG.
--- NOTE | 2017-10-07 13:10 | NUR ---
PT UP TO CHAIR, TOLERATED LUNCH WELL. PT UNDERSTANDS HOW TO USE HER 2 DRAINS. PT AMBULATED IN THE HALLS THIS MORNING, PLANNED TO CONTINUE THIS AFTERNOON. TOLERATED PO ANTIBIOTICS WELL. WILL CONTINUE TO MONITOR.
--- NOTE | 2017-10-07 13:16 | NUR ---
PT SITTING IN CHAIR FINISHING UP LUNCH, WITH PILLOWS FOR COMFORT. SHE SEEMED CHEERFUL, AND DID MENTION THAT THE PLAN IS TO DC TOMORROW. SHE STATED THAT SURGERY WENT WELL, THANKED ME FOR STOPPING, WILL FOLLOW NEEDED
--- NOTE | 2017-10-07 13:37 | NUR ---
PATIENT IS SLEEPING.
--- NOTE | 2017-10-07 18:40 | NUR ---
PT IS EATING DINNER AT BEDSIDE WITH FAMILY VISITING. PT WANTS PRN PAIN MEDS DURING JUNIOR ACCOUNTING CLERK. PT HAS RESTED THIS AFTERNOON, TOLERATED MEDS AND MEALS WELL. NO OTHER CHANGES IN CONDITION, WILL CONTINUE TO MONITOR.
--- NOTE | 2017-10-07 18:42 | NUR ---
PT HAS HAD A GOOD DAY TODAY. PT HAS MINIMAL DRAINAGE TO BOTH MASTECTOMY MARKY SITES. PT HAS AMBULATED THE HALLWAYS SUCCESSFULLY AND TOLERATED ALL MEDS. PT ATE WELL, OUTPUT SUFFICIENT.
--- NOTE | 2017-10-07 19:33 | NUR ---
PATIENT GOT A BED BATH TODAY AND SHAMPOOED HER HAIR.
--- NOTE | 2017-10-07 19:36 | NUR ---
RECEIVED REPORT FROM DAY SHIFT RN. PATIENTIS AMBULATING IN THE HALLWAY. PATIENT DENIES ANY NEEDS. CALL LIGHT IN REACH.
--- NOTE | 2017-10-07 19:50 | NUR ---
CHARGE NURSE ROUNDING NOTE:. WALKING HALLWAYS WITH FAMILY, NO C/O APIN. NO REQUESTS
--- NOTE | 2017-10-07 20:00 | NUR ---
PATIENT ASSESMENT COMPLETED. PATIENTS EVENING MEDICATIONS GIVEN PER ORDER. PATIENT RATES PAIN AT A 4/10. PATIENT GIVEN PRN PAIN MEDICATION PER ORDER. PATIENTS DRESSING ON RIGHT BREAST AREA HAS MEPILEX AND OPSITE PRESENT. DRESSING HAS MINIMAL SHADOWING NOTED. PATIENT HAS X2 MARKY DRAINS PRESENT. MARKY DRAINS HAVE A SCNAT AMOUNT OF DRAINGE. JPS NOT EMPTIED AT THIS TIME. PATIENT DENIES ANY FURTHER NEEDS AT THIS TIME. CALL LIGHT IN REACH.
--- NOTE | 2017-10-07 20:08 | NUR ---
VITALS AND I&OS DONE AND CHARTED. FRESH WATER AND APPLE JUICE GIVEN. BEDSIDE TABLE AND CALL LIGHT WITHIN REACH. PT NEEDS NOTHING AT THIS TIME.
--- NOTE | 2017-10-07 21:42 | NUR ---
WARM BLANKET GIVEN. PT ASKED FOR A PAIN PILL , I LET HER RN SARAH KNOW.
--- NOTE | 2017-10-07 22:00 | NUR ---
PATIENT CALLED AND REQUESTED PRN PAIN MEDICATION FOR 4/10 PAIN IN HER RIGHT BREAST. PATIENT DENIES ANY FURTHER NEEDS AT THIS TIME. PATIENTS SISTER IS RESTING ON THE COUCH. CALL LIGHT IN REACH.
--- NOTE | 2017-10-07 23:55 | NUR ---
PATIENT IS RESTING IN BED WITH EYES CLOSED, RR 17. CALL LIGHT IS WITHIN REACH.
--- NOTE | 2017-10-08 01:11 | NUR ---
PATIENT IS RESTIN GIN BED WITH EYES CLOSED, RR18. CALL LIGHT IN REACH.
--- NOTE | 2017-10-08 01:47 | NUR ---
PATIENT AWOKEN WHEN ROOM WAS ENTERED. PATIENT DENIES ANY PAIN. SISTER IS ASLEEP ON THE COUCH. NO NEEDS NOTED. CALL LIGHT IN REACH. MARKY DRAINS HAVE NO CAHNGE IN DRAINGE AMOUNT.
--- NOTE | 2017-10-08 03:09 | NUR ---
PATIENT CALLED AND REQUESTED PAIN MEDICATION FOR 5/10 PAIN IN HER RIGHT BREAST. PATIENT GIVEN PRN PAIN MEDICATION PER ORDER. PATIENT DENIES ANY FURTHER NEEDS AT THIS TIME. CALL LIGHT IN REACH.
--- NOTE | 2017-10-08 04:33 | NUR ---
PATIENT RESTED WELL THROUGHOUT THE GREATER PART OF THE SHIFT. PATIENT IS ON A REGEULAR DIET AND IS TOLERATING IT WELL, NO NAUSEA NOTED. PATIENT IS INDEPENDENT IN THE ROOM AND THE HALLWAY. PATIENT AMBULATED MULTIPLE TIMES IN THE HALLWAY. PATIENT IS WORKING WITH PT. PATIENT HAS X2 JPS THAT HAVE HAD A SCANT AMOUNT OF DRAINAGE. PATIENT HAS A CENTRAL LINE THAT IS HEPLOCKED WHEN NOT IN USE. PATIENT RECEIVED PRN PAIN MEDICATION X3. PATIENT IS AAOX3 AND USES CALL LIGHT APPROPRIATELY.
--- NOTE | 2017-10-08 05:47 | NUR ---
PATIENT IS RESTING IN BED. PATIENTS VITALS TAKEN AND RECORDED W/CITY ENGINEER. PATIENT COMPLAINS OF BEING RESTLESS. PATIENT COMPLAINS OF BEING HOT. REMOVED X1 BLANKET. PATIENTS JPS STRIPPED AND DRAINED PER ORDER. BOTH JPS HAVE A TOLTAL OF 26ML OUT THIS SHIFT. PATIENT RATES PAIN AT A 2/10. PATIENT DENIES THE NEED FOR PAIN MEDICATION AT THIS TIME. CALL LIGHT IN REACH.
--- NOTE | 2017-10-08 07:06 | NUR ---
RECIEVED BEDSIDE REPORT FROM [facility]. PT SLEEPING AFTER A RESTLESS NIGHT. BREATHING EVEN AND UNLABORED. PT ANXIOUS ABOUT GOING HOME.
--- NOTE | 2017-10-08 11:55 | NUR ---
PT ANXIOUS FOR DISCHARGE. DR BARRIGA IS IN SURGERY AT THIS TIME, BUT IS AWARE OF THE PENDING DISCHARGE. PT TOLD THAT WILL BE IN SOON POSSIBLE.
--- NOTE | 2017-10-08 13:57 | NUR ---
PT SLEEPING SOUNDLY, WAITING FOR DR BARRIGA TO WRITE DISCHARGE INSTRUCTIONS. PT INDEPENDENT IN ROOM, NO NEEDS AT THIS TIME.
--- NOTE | 2017-10-08 15:02 | NUR ---
PATIENT DIDN'T WANT A BED BATH TODAY BECAUSE SHE HAD ONE YESTERDAY. SHE MIGHT BE GOING HOME TODAY.
--- NOTE | 2017-10-08 15:04 | NUR ---
AROUND 1400 PATIENT WAS SLEEPING.
--- NOTE | 2017-10-08 15:53 | NUR ---
PT UP WALKING THE CHAVIRA WITH FAMILY MEMBER. PT TOLERATING WELL.
--- NOTE | 2017-10-08 18:08 | NUR ---
ROUNDED WITH DR BARRIGA. DISCUSSED RISKS OF RECURRING INFECTION, RECONSTRUCTION, HYGINE, SKIN AND WOUND CARE. PT AND HER SISTER VERBALIZED UNDERSTANDING OF DR BARRIGA'S INSTRUCTIONS. RN GAVE PT SEVERAL PACKETS OF HIBICLENSE PER DR BARRIGA'S REQUEST.
[2017-10-08] MEDS ORDERED: OXYCODON-ACETA1 EAC2 PO (18:18)
[2017-10-08] MEDS ORDERED: FERROUS SULFAT325 MG PO (18:18)
[2017-10-08] MEDS ORDERED: AMOX TR-K CLV1 EAC1 PO (18:18)
[2017-10-08] MEDS ORDERED: FOLIC ACID1 MG PO (18:19)
[2017-10-08] MEDS ORDERED: MAPAP325 MG PO (18:19)
[2017-10-08] MEDS ORDERED: VITAMIN C250 MG PO (18:19)
--- NOTE | 2017-10-08 18:58 | NUR ---
PT DISCHARGED. CENTRAL LINE REMOVED IN ASEPTIC MANNER. CATHETER INTACT. PRESSURE APPLIED. NO BLEEDING NOTED. VERBAL AND WRITTEN INSTRUCTIONS GIVEN. PT AND HER SISTER VERBALIZED UNDERSTANDING OF DIRECTIONS. SPECIMEN JAR AND PACKETS OF HIBICLENSE GIVEN PER MD ORDER. PT WILL CALL ON WEDNESDAY FOR AN APPOINTMENT. PT WORE NEW CLOTHES TO AVOID CROSS-CONTAMINATION.
--- NOTE | 2017-10-09 22:04 | DS ---
[facility] [address] [facility] [place], [place] [address] Signed ADMISSION DATE: 09/27/2017 DISCHARGE DATE: 10/08/2017 REASON FOR ADMISSION: This 27-year-old obese [place] woman was incidentally traumatized in the right breast with an elbow several days before her current evaluation in the emergency room. Within two days, she began having increasing pain in the right breast and swelling. Things worsened through the weekend when she rolled over in bed, noticed a fair amount of purulent material. She presented to the emergency room where she was evaluated by Dr. Chloe Mcdowell, found to have an extensive amount of cellulitis, and edema of the right breast, as well as desquamation and a dense eschar covering at least the size of the examining hand to the lateral aspect. The breast itself was at least twice the size of her normal left-sided breast. Evaluation included a chest x-ray, which was normal, and clinical signs of sepsis prompted sepsis evaluation including noting a lactate level of 2.6, and white count of 22,000. She is admitted for further evaluation, and care with sepsis, and presumed right breast infection, cellulitis, possible abscess. PERTINENT PHYSICAL EXAMINATION: GENERAL: An obese and large [place] woman who is slightly tearful. Mother accompanies her trachea is midline. CHEST: Clear. HEART: Regular without murmur. BREASTS: The left breast was grossly normal. There is no sign of left arm edema. The right breast is massively enlarged with extensive area of epidermolysis including underlying dermis that is exposed in a geographic appearance, mostly in the lateral aspect and inferior aspect. There is generalized edema of the breast and erythema. The palpation shows exquisite tenderness. There is no sign of nipple discharge. A 12-lead EKG showed sinus tachycardia, minimal voltage criteria for left ventricular hypertrophy. HOSPITAL COURSE: The patient was admitted with essentially sepsis, severe, and advanced right breast infection with several-day delay from presentation. The extent of her epidermolysis was quite remarkable and an abscess was six suspect within the substance of the breast, possibly related to the trauma a week preceding her presentation. She was fluid resuscitated aggressively and taken to the operating room. At operation, she was noted to have purulence within the substance of the breast and what appeared to be viable breast parenchyma generally speaking. Three separate Ananya drains were used to drain the parenchyma of the breast. There was no crepitus, or sign of sen necrosis at that point. Gram stain and cultures were obtained at the time of operation, which showed Electronically Signed By: KEYSHAWN BARRIGA MD 10/09/17 2204 PATIENT NAME: AUSTIN BAILEY DISCHARGE SUMMARY DATE OF : [birth year] REPORT #: [id number] PHYSICIAN: KEYSHAWN BARRIGA MD PCP: NATHAN MITCHELL MD REPORT IS CONFIDENTIAL AND NOT TO BE RELEASED WITHOUT AUTHORIZATION [address] [address] Signed gram-positive cocci and not otherwise characterized. She was managed in the intensive care unit postoperatively where she was noted to have significant hypotension requiring pressor drip of norepinephrine. Additional fluid was given 9 L in total accounting the time of her operation. There was notable that although purulence was obtained during the course of operative drainage, not as much as I would have expected typically. She did have some improvement, though she still required pressor agents. Consultation was undertaken with Dr. Engle and her a norepinephrine drip was increased to 15 mg/hour. Antibiotics preoperatively included cefepime, and immediately postoperative vancomycin and meropenem. Given her sepsis and so forth, a left subclavian central venous catheter was placed for access for the pressor agent. A postprocedure chest x-ray was normal with good position of the catheter. She had improvement of her symptoms, but still required pressor agents, and although lactic acid level was decreased, it was not entirely normal. She remained with a systolic blood pressure of 88, with a pulse down to 120 with norepinephrine drip at 10. As she had improvement, she remained relatively hypotensive. A chest x-ray performed in the superintendent recreation hours of September 29 demonstrated a moderate-size left-sided pneumothorax. This was surprising considering central venous catheter was placed without sign of pneumothorax two days earlier. A 20-Burkinan chest tube was placed showing a serosanguineous fluid and no sign of air leak or other problem. Prompt expansion of the lung was noted. By 8:00 a.m., on September 29, 2017, she still had a requirement of pressor agent, and it was deemed likely the source control had not been obtained as had been hoped. On that basis, she underwent exam under anesthesia on September 29, 2017, confirming high probability of a necrotizing soft tissue infection. Although a limited debridement was hoped for the extent of the problem was such that a right total mastectomy was required. Closure of the wound was quite unlikely and a wound VAC was applied. Within 24 hours, she was markedly better, lactic acid down to 1.2, and a chest tube without sign of air leak, and the lung well expanded. In due course the culture obtained at initial operation demonstrated group A strep (strep pyogenes). She is maintained with parental antibiotic including vancomycin, and meropenem, and her pressor agents were able to be weaned off. Her chest tube was able to be removed without problem. Cultures of both the initial operation, as well as the total mastectomy did confirm group A strep (strep pyogenes). The organism was pansensitive, and Levaquin was initiated orally. The meropenem was Electronically Signed By: KEYSHAWN BARRIGA MD 10/09/17 2204 PATIENT NAME: AUSTIN BAILEY DISCHARGE SUMMARY DATE OF : [birth year] REPORT #: [id number] PHYSICIAN: KEYSHAWN BARRIGA MD PCP: NATHAN MITCHELL MD REPORT IS CONFIDENTIAL AND NOT TO BE RELEASED WITHOUT AUTHORIZATION [facility] [address] [place], [place] [address] Signed discontinued and vancomycin maintained. The patient was transferred to the regular nursing odell on October 03, 2017, where she had progressive recovery. The wound VAC was changed in the operating room, which was found to have excellent granulation of the base of the wound and edges. There was still some areas of necrotic fat, though they did not appear to be infected grossly. Cultures were negative for organisms at that point. Though, a considerable amount of skin for flap coverage had been excised, it was deemed likely that with undermining of the flap, superior and inferior closure at some point be undertaken instead of skin grafting for closure. It was anticipated breast reconstruction would be undertaken in the future possibly including TRAM flap or other myocutaneous flap. On October 03, 2017, she underwent removal of the wound VAC sponge and some debridement of the lateral axillary fat, but closure of the wound after elevating superior and inferior flaps. Two drains were placed as well. She did not have too much output of the drains, though still more than 30 mL per day, and on that basis, she will be discharged to home with both sub flap and actually drains in place. She will be discharged to home and has been given instructions regarding exercise that she use for her right arm. She is encouraged to use her arm, but avoid trauma to it. She will use Hibiclens soap at home as well. She will be discharged home with Augmentin antibiotic 875 mg p.o. b.i.d. which was started the day before her discharge in lieu of Levaquin. She will remove her OpSite and other dressings tomorrow at home. She is permitted to shower now. She will leave Steri-Strips in place. I will plan to see her on Wednesday (today is Wednesday) as she is likely to have diminished output from her drains enough to allow for removal of the drains. DISCHARGE MEDICATIONS: Will include, 1. Augmentin 875 mg p.o. b.i.d. #14. 2. Ferrous sulfate 325 mg p.o. b.i.d. #60. 3. Vitamin C 250 mg p.o. b.i.d. #60. 4. Folic acid 1 mg tablet p.o. daily #30. 5. Tylenol 650 mg p.o. q.6 hours p.r.n. pain. 6. Percocet 7.5/325, one p.o. q.6 hours p.r.n. pain #10. 7. Ferrous sulfate 325 mg p.o. b.i.d. Electronically Signed By: KEYSHAWN BARRIGA MD 10/09/17 2200 PATIENT NAME: AUSTIN BAILEY DISCHARGE SUMMARY DATE OF : [birth year] REPORT #: [id number] PHYSICIAN: KEYSHAWN BARRIGA MD PCP: NATHAN MITCHELL MD REPORT IS CONFIDENTIAL AND NOT TO BE RELEASED WITHOUT AUTHORIZATION [address] [address] Signed DISCHARGE DIAGNOSES: 1. 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 2. Delayed primary closure of wound with elevation of flaps and placement of drains. 3. Obesity. 4. Sepsis syndrome including elevated lactic acid and hypotension requiring pressor agents, unresponsive to fluid boluses. 5. Left-sided pneumothorax 48 hours following left-sided subclavian line placement requiring chest tube. 6. Anemia. Keyshawn Barriga MD /MODL /[id number] cc: [facility] MD Nathan Glez MD Lohith Veerappa Reddy, MD James Alan Morrow, DO Brian Piteo, MD Copies: [facility] LAURA ENGLE MD,NATHAN LASSITER,CHLOE MITCHELL MD, DO Electronically Signed By: KEYSHAWN BARRIGA MD 10/09/17 2204 PATIENT NAME: AUSTIN BAILEY DISCHARGE SUMMARY DATE OF : [birth year] REPORT #: [id number] PHYSICIAN: KEYSHAWN BARRIGA MD PCP: NATHAN MITCHELL MD REPORT IS CONFIDENTIAL AND NOT TO BE RELEASED WITHOUT AUTHORIZATION [facility] [address] [facility] [place], [place] [address] Signed MARIAMA VAN DO ~ Electronically Signed By: KEYSHAWN BARRIGA MD 10/09/17 2204 PATIENT NAME: AUSTIN BAILEY FABIAN DISCHARGE SUMMARY DATE OF : [birth year] REPORT #: [id number] PHYSICIAN: KEYSHAWN BARRIGA MD PCP: NATHAN MITCHELL MD REPORT IS CONFIDENTIAL AND NOT TO BE RELEASED WITHOUT AUTHORIZATION
== END 2017-10-08 18:50 | disposition home or self-care (01) | DRG 853 ==
LOC: ED 09:25 → MS 12:47 → CCU 12:47 → MS 10-02 13:30
PROVIDERS: ADMIT Surgery
PROC: 3E033XZ Introduction of Vasopressor into Peripheral Vein, Percutaneous Approach (ICD-10-PCS; 2017-09-27)
PROC: 02HV33Z Insertion of Infusion Device into Superior Vena Cava, Percutaneous Approach (ICD-10-PCS; 2017-09-27)
PROC: 0H9T0ZZ Drainage of Right Breast, Open Approach (ICD-10-PCS; 2017-09-27)
PROC: 0W9B30Z Drainage of Left Pleural Cavity with Drainage Device, Percutaneous Approach (ICD-10-PCS; 2017-09-29)
PROC: 0HTT0ZZ Resection of Right Breast, Open Approach (ICD-10-PCS; principal; 2017-09-29 09:00)
PROC: 0HBT0ZZ Excision of Right Breast, Open Approach (ICD-10-PCS; 2017-10-03)
PROC: 0JQ60ZZ Repair Chest Subcutaneous Tissue and Fascia, Open Approach (ICD-10-PCS; 2017-10-06)
DX: A40.0 Sepsis due to streptococcus, group A (principal); M72.6 Necrotizing fasciitis; J95.811 Postprocedural pneumothorax; J96.91 Respiratory failure, unspecified with hypoxia; N17.9 Acute kidney failure, unspecified; R65.20 Severe sepsis without septic shock; N61.1 Abscess of the breast and nipple; E87.6 Hypokalemia; L30.9 Dermatitis, unspecified; E66.9 Obesity, unspecified; E83.42 Hypomagnesemia; D50.9 Iron deficiency anemia, unspecified; Y82.8 Other medical devices associated with adverse incidents; Y92.239 Unspecified place in hospital as the place of occurrence of the external cause; Y84.8 Other medical procedures as the cause of abnormal reaction of the patient, or of later complication, without mention of misadventure at the time of the procedure; Z68.33 Body mass index [BMI] 33.0-33.9, adult; Z79.3 Long term (current) use of hormonal contraceptives
CPT/HCPCS: 00400; 00404; 31720; 32551; 36415; 71045; 80048; 80053; 80202; 81001; 82247; 82465; 82607; 82728; 82746; 83540; 83605; 83615; 83735; 84100; 84132; 84466; 84478; 84550; 84703; 85025; 85610; 87040; 87070; 87075; 87077; 87088; 87186; 87205; 93005; 93010; 94002; 94640; 94660; 96365; 96375; 97116; 97161; 99285; J0131; J0330; J0692; J1100; J1170; J1644; J1885; J2185; J2250; J2270; J2370; J2405; J2704; J3010; J3370; J3475; J3480; J7030; J7040; J7060; J7120